=== PATIENT | male | born 1945 | race Caucasian/White ===

== ENCOUNTER → 2021-10-28 10:36 | Outpatient (CLI) | payer MEDICARE, SELFPAY ==
--- NOTE | ~2021-10-28 | US_ITS ---
EXAMINATION: US renal BI DATE: 10/28/2021 10:58 INDICATION: Renal cysts TECHNIQUE: Multiple ultrasound grayscale images of the kidneys were obtained. COMPARISON: None. FINDINGS: The right kidney measures 11.2 x 4.6 x 5.7 cm. 2.2 cm anechoic exophytic cyst arising from the lower pole of the right kidney. The left kidney measures 12.1 x 6.0 x 5.3 cm. The kidneys demonstrate meera l echogenicity. There is no hydronephrosis in either kidney. No stones identified. The bladder is no rmal. IMPRESSION: 1. 2.2 cm exophytic right renal cyst. Otherwise normal kidneys without hydronephrosis. Reviewed, dictated and finalized at location A. IMPRESSION: 1. 2.2 cm exophytic right renal cyst. Otherwise normal kidneys without hydrone phrosis.
== END ==
PROVIDERS: PCP Internal Medicine; Visit Provider Internal Medicine
DX: N28.1 Cyst of kidney, acquired (principal)
CPT/HCPCS: 76775

== ENCOUNTER 2022-03-07 09:32 | Outpatient (CLI) | payer MEDICARE, SELFPAY ==
--- NOTE | ~2022-03-07 | NM_ITS ---
EXAMINATION: NM hepatobiliary wo pharm DATE: 03/07/2022 15:24 INDICATION: Gallstones. COMPARISON: None. TECHNIQUE: 4.9 mCi Tc-99m mebrofenin (Choletec) was administered intravenously. Scintigraphic images of the abdomen were obtained for one hour. Additional 4 hour delayed scintigrams were obtained in an terior and right lateral projections. FINDINGS: There is normal clearance of radiotracer from the blood pool. There is homogeneous tracer u ptake by the liver. Activity progresses to the common bile duct by 15 minutes with activity first se en in the duodenum at 20 minutes. No evident accumulation of activity in the gallbladder on either th e initial 1 hour of imaging or on the 4 hour delayed images. IMPRESSION: 1. No evident gallbladder activity. This can be seen in the setting of acute cholecystitis or false positives can also be seen in the setting of chronic cholecystitis or with either prolonged fasting o r ingestion in the 4 hours prior to imaging. Correlate clinically for signs/symptoms of acute cholecy stitis including Caldera sign and with any prior outside imaging. Reviewed, dictated and finalized at location A. [employer] GENERATOR REPAIRER IMPRESSION: 1. No evident gallbladder activity. This can be seen in the setting of acute c holecystitis or false positives can also be seen in the setting of chronic chol ecystitis or with either prolonged fasting or ingestion in the 4 hours prior to imaging. Correlate clinically for signs/symptoms of acute cholecystitis includ ing Caldera sign and with any prior outside imaging.
== END 2022-03-07 09:33 | disposition home or self-care (01) ==
LOC: ANHIMG 09:39
PROVIDERS: PCP Internal Medicine; Visit Provider Internal Medicine
DX: K80.20 Calculus of gallbladder without cholecystitis without obstruction (principal)
CPT/HCPCS: 78226; A9537

== ENCOUNTER → 2022-03-30 07:20 | Outpatient (CLI) | payer MEDICARE, SELFPAY ==
--- NOTE | ~2022-03-30 | US_ITS ---
EXAMINATION: US abdomen limited DATE: 03/30/2022 11:02 INDICATION: R10.11 - Right upper quadrant pain TECHNIQUE: Multiple grayscale and Doppler ultrasound images of limited portions of the abdomen were o btained. COMPARISON: None available. FINDINGS: Suboptimal visualization of the pancreas. The liver is normal size with increased echogenic ity and normal echotexture. No surface nodularity. Normal hepatopetal flow in the main portal vein. C holelithiasis. 4.6 cm multilobulated echogenicity within the gallbladder lumen, with power Doppler fl ow. The common bile duct measures 4 mm. There was no sonographic Caldera sign. IMPRESSION: 4.6 cm likely gallbladder polyp, recommend referral for surgical consultation. Cholelithiasis. Subopt imal visualization of the pancreas. Reviewed, dictated and finalized at location K. RING PROFESSIONAL IMPRESSION: 4.6 cm likely gallbladder polyp, recommend referral for surgical consultation. Cholelithiasis. Suboptimal visualization of the pancreas.
== END ==
PROVIDERS: PCP Internal Medicine; Visit Provider Surgery
DX: R10.11 Right upper quadrant pain (principal); K80.20 Calculus of gallbladder without cholecystitis without obstruction
CPT/HCPCS: 76705

== ENCOUNTER 2022-04-06 07:56 | Outpatient (CLI) | payer MEDICARE, SELFPAY ==
[2022-04-06 08:44] LABS: Alanine Aminotransferase 23 U/L (6-50); Albumin Level 4.1 g/dL (3.5-5.1); Alkaline Phosphatase 100 U/L (38-126); Amylase 72 U/L (30-110); Aspartate Amino Transferase 24 U/L (17-59); Bilirubin,Total 1.2 mg/dL (0.2-1.3); Lipase 131 U/L (23-300)
== END 2022-04-06 07:57 | disposition home or self-care (01) ==
PROVIDERS: PCP Internal Medicine; Visit Provider Surgery
DX: K80.10 Calculus of gallbladder with chronic cholecystitis without obstruction (principal)
CPT/HCPCS: 36415; 80076; 82150; 83690; 86850; 86900; 86901

== ENCOUNTER 2022-04-13 01:09 | Day surgery (SDC) | payer MEDICARE, SELFPAY ==
--- NOTE | 2022-03-31 14:58 | PC.NURSE ---
Report to the Outpatient Waiting Room, entrance under the green pavilion located off [facility], at time _1030 on date __04/13/22 . Planned Procedure Time: _1230 . Time changes happen often and if your time is changed the preop area will call you the afternoon before. - You and your visitor will be asked to self-screen and do not enter if you have any COVID symptoms. - Only one visitor is requested with a max of two and NO children visitors are allowed at this time. - The patient visitor may be requested to leave or wait in car when not with patient due to distancing restrictions. - A mask is optional within the hospital at this time. Patients may have clear liquids (water, carbonated beverages, clear teas, apple juice) until 3 hours prior to surgery with a maximum of 20 ounces. - No food from midnight until time of surgery - Infants may have breast milk until 4 hours before surgery, infant formula 6 hours prior to surgery. - Children will be allowed to drink immediately following surgery. If applicable, please bring a bottle or sippy cup to assist with drinking. Juice, water, soda, and popsicles are readily available. For infants on formula, please bring formula the day of surgery. Pacifiers are allowed. Take the following medications with a SIP of water the morning of surgery: ___NONE DO NOT STOP ANY OF YOUR OTHER PRESCRIPTION MEDICATIONS PRIOR TO SURGERY ?EXCEPT THE FOLLOWING Medications to discontinue per physician ____ALL VITAMINS AND SUPPLEMENTS 3 DAYS . LAST DOSE 04/09/22 HIBICLENS SHOWER MORNING OF SURGERY Please no make-up, nail turkish, hairspray, perfume, deodorant, or body powder the day of surgery. No jewelry (including any body piercings) or valuables the day of surgery, leave them at home. Please take a shower or bath the night before, or the morning of, surgery with an antibacterial soap. Wear comfortable, loose fitting clothing. Children are encouraged to wear pajamas. - Jewelry must be removed prior to entering the operating room. Rings and piercings that are not removed may be cut off. - The hospital will not accept responsibility for valuables. - Please leave all valuables, including medications, at home the day of surgery. If you are going home after surgery, a licensed garbage truck driver must drive you home. - NO public transportation without another adult if you receive anesthesia. - We recommend that an adult stay with you for 24 hours following discharge. - We also recommend that you do not drive, make important decision, drink alcoholic beverages, or take any drugs that were not prescribed by your health care provider for at least 24 hours after your discharge time. For Pediatric surgeries, we recommend two adults accompany the child home. Follow any additional instructions given to you from your surgeon. If you or anyone in your household have experienced Covid symptoms in the past week, please notify your surgeon or the nurse liaison at the phone number below for possible testing. Telephone instructions given to _PATIENT and asked if any additional questions and then verbalized understanding. Patient advised to call surgeon office or pre surgery nurse liaison [phone] if any additional questions.
[2022-03-31 15:09] VITALS: BMI 27.3
[2022-04-13] VITALS (10 sets, daily range): BP systolic 139–174; BP diastolic 65–92; PULSE 50–80; RESP 12–16; TEMP 36.1–36.4; O2SAT 94–100
--- NOTE | 2022-04-13 07:09 | P.PNAN_ITS ---
Anes - Initial Pre Proc Eval Procedure: Operation Date: 04/13/22 07:30 Proposed Procedures p Laparoscopic Cholecystectomy - Kennedy Dutta MD Date/Time: 04/13/22 07:09 Surgeon: Kennedy Dutta MD Pre Op Diagnosis: chronic cholecystitis with stones Patient Data Age: 76 Gender: M Height: 1.88 m Weight: 96.65 kg Allergies Allergy/AdvReac Type Severity Reaction Status Date / Time No Known Allergies Allergy Verified 03/31/22 14:40 Home Medications Medication Instructions Recorded Confirmed Type cetirizine 10 mg capsule (Zyrtec) 10 mg PO DAILY PRN Allergy Symptoms 03/24/22 03/31/22 History cholecalciferol (vitamin D3) 125 125 mcg PO DAILY 03/24/22 03/31/22 History mcg (5,000 unit) capsule mecobalamin (vitamin B12) 1,000 1,000 mcg PO DAILY 03/24/22 03/31/22 History mcg chewable tablet tadalafil 20 mg tablet 20 mg PO DAILY PRN Erectile 03/24/22 03/31/22 History Dysfunction vitamin E (dl, acetate) 180 mg 180 mg PO DAILY 03/24/22 03/31/22 History (400 unit) capsule Patient hx anesthesia problems: none Family hx anesthesia problems: none Results Review: All pre-operative results and documents have been reviewed as part of the pre-operative evaluation. [facility] Past Medical History Medical History (Updated 03/24/22 @ 14:02 by Emma Liriano) Hypertension Prostate cancer Surgical History Surgical History H/O prostatectomy H/O umbilical hernia repair History of appendectomy Social History Social History Smoking status: Never smoker Living arrangements: with family Spiritual care concerns: No Anes - Eval Final PreProcedure Day of Procedure 04/13/22 07:09 Patient weight: overweight Heart: regular rate and rhythm Lungs: clear to auscultation Airway: Mallampati scale class II Neurological: alert and oriented Last oral intake: >/= 8 hours ASA classification: III Emergent: no Anesthetic plan: proceed Anesthesia type and monitoring: general ETT and standard monitoring Results Review: All pre-operative results and documents have been reviewed as part of the pre- operative evaluation. Informed Consent: The patient's anesthetic plan and its attendant risks and benefits were discussed with the patient/family/POA. Questions were solicited and answers provided to the satisfaction of the patient/family/POA.
--- NOTE | 2022-04-13 07:10 | WPDHPUPDATE1 ---
History and Physical Update Update Date/Time: 04/13/22 07:10 Patient's US showed large polyp per report as well as gallstones. I reviewed the US independently with Dr. Roger. The polyp is more likely a large amount of sludge. There is also a large, 3cm, gallstone. Will be wary of potential GB cancer but there was no indication of this on the CT or the more recent US. Will proceed as planned. History and Physical has been reviewed, including an updated exam of the patient. There are NO changes in the patient's condition. Risks, benefits, and alternatives have been discussed and questions answered. Patient agrees to proceed with procedure.
[2022-04-13] MEDS: LACTATED RINGERS 1,000 ML 30 ML IV CONT ×2 (07:15→08:54)
[2022-04-13] MEDS: KETOROLAC 15 MG/ML VIAL (*BKC) IV PUSH (07:15)
[2022-04-13] MEDS: ACETAMINOPHEN 500 MG TABLET 1000 MG PO (07:15)
[2022-04-13] MEDS: ceFAZolin 2 GM/D5W 50 ML 2 GM/50 ML BAG IVPB (07:27)
[2022-04-13] MEDS: BUPIVACAINE/EPINEPHRINE 0.5% 10 ML VIAL 30 ML INFILTRATE (07:52)
--- NOTE | 2022-04-13 09:11 | W.PM.PROC2 ---
Procedure Note - Detailed Date of Procedure 04/13/22 Pre-op Diagnosis chronic cholecystitis with stones Post-op Diagnosis Other (Acute on chronic cholecystitis with cystic duct obstruction, gallstones) Procedure Performed Laparoscopic cholecystectomy Surgeon Kennedy Dutta MD [employer] May KUMARIA Anesthesia General and Local (0.5% Marcaine with epinephrine) Indications Patient has had several episodes of recurrent right upper quadrant abdominal pain. He has been known to have gallstones for quite some time. Initial imaging was a CT scan which showed a large gallstone. After being seen in the office, he underwent a right upper quadrant ultrasound which was read as having a 4.5 cm gallbladder polyp as well as gallstones. Review of this ultrasound independently with another radiologist suggested this was actually sludge with a large gallstone. There was no evidence of malignancy on either the CT scan or the ultrasound. Patient is taken to surgery now for laparoscopic cholecystectomy. Findings There was hydrops of the gallbladder. Gallbladder wall was thickened. There was mostly chronic inflammation but also some edema and acute inflammation. There was no evidence of cancer but the gallbladder wall was thickened from inflammation. After the gallbladder was removed the inside of the gallbladder was literally 1 large stone. There was no biliary ductal dilatation or liver abnormalities appreciated. Description of Procedure The patient was taken to surgery and induced into general anesthesia. The abdomen is prepped and draped. Trocars were placed in the usual fashion using [employer] optical trocars and a 5 mm camera. After insufflation, the patient was placed in reverse Trendelenburg. The gallbladder was reviewed. There was some inflammatory adhesions to the gallbladder. These were taken down. I inspected the gallbladder for any signs of a tumor and did not find any. We then used a laparoscopic aspirator and decompressed the gallbladder at the fundus. Clear fluid returned consistent with hydrops. A Vicryl endoloop was placed over this cholecystotomy to close it. We then retracted the gallbladder anterosuperiorly. Some additional adhesions were taken down. It was difficult to retract but eventually we were able to do so to an adequate degree. It was difficult to grasp the infundibulum but I was able to do this and placed some traction on the cholecystohepatic triangle. There was a lot of chronic inflammation in the triangle of Calot. Careful dissection was carried out. Eventually the cystic duct was dissected out clearly. The gallbladder was dissected free from the liver dividing the peritoneal attachments on each side. The cystic artery was sought but was never really found. It may have been diminutive and involved in the fairly dense adhesions of the lower gallbladder. It may also of already been thrombosed. None the less, when the gallbladder had been dissected free from the liver over at least a 3rd of its length, the cystic duct was then securely clipped and divided. We then continued the dissection of the gallbladder off the liver. There was really no distinct plane between the gallbladder and the liver but the gallbladder was coming off leaving some raw liver surface behind. The gallbladder was never entered during the dissection. We continued our dissection until eventually the gallbladder was completely freed from the liver. We left the gallbladder in the right upper quadrant and then exposed the gallbladder fossa. Cautery was used and the gallbladder fossa was coagulated to achieve good hemostasis over all the raw liver surface. Bleeding was actually pretty minimal. I was never able to find any semblance of a cystic artery. The clips were secure on the cystic duct stump. We then placed the gallbladder in an Endo-Catch bag and retrieved it through the 10 11 epigastric trocar site. I had to enlarge the trocar site
[2022-04-13] MEDS: fentaNYL CITRATE INJ (*CRX) 100 MCG/2 ML VIAL 25 MCG IV PUSH ×5 (09:35→10:45)
[2022-04-13] MEDS: oxyCODONE HCL (*CRX) 5 MG TAB IR PO (10:34)
== END 2022-04-13 11:20 | disposition home or self-care (01) ==
PROVIDERS: PCP Internal Medicine; Visit Provider Surgery
PROC: 0FT44ZZ Resection of Gallbladder, Percutaneous Endoscopic Approach (ICD-10-PCS; CPT 47562; principal; 2022-04-13 07:30)
DX: K80.10 Calculus of gallbladder with chronic cholecystitis without obstruction (principal); K82.1 Hydrops of gallbladder; I10 Essential (primary) hypertension; Z85.46 Personal history of malignant neoplasm of prostate
CPT/HCPCS: 47562; 88304; A9270; C1713; J0690; J1100; J1170; J1885; J2405; J2704; J2710; J3010; J7120

== ENCOUNTER 2022-09-02 08:02 | Inpatient (IN) | payer MEDICARE, SELFPAY ==
[2022-09-02] VITALS (38 sets, daily range): BP systolic 115–175; BP diastolic 62–86; PULSE 52–88; RESP 10–23; TEMP 36.1–37.2; O2SAT 96–100; BMI 26.2
--- NOTE | ~2022-09-02 | XR_ITS ---
EXAMINATION: XR chest 2V DATE: 09/02/2022 08:55 INDICATION: Chest pain. Dizziness. Weakness. Abdominal pain. TECHNIQUE: Frontal and lateral views of the chest were obtained. COMPARISON: None. FINDINGS: The chest demonstrates clear lungs without pneumonia, pleural effusion, or pneumothorax. Th e heart size is normal. IMPRESSION: 1. No acute cardiopulmonary disease. Reviewed, dictated and finalized at location A.
--- NOTE | 2022-09-02 08:22 | ECG_ITS ---
Measurements Intervals Jakin Rate: 58 P: 37 GA: 197 QRS: -26 QRSD: 98 T: 84 QT: 382 QTc: 377 Interpretive Statements SINUS BRADYCARDIA VENTRICULAR PREMATURE COMPLEX ANTERIOR INFARCT, AGE INDETERMINATE INFERIOR INFARCT, AGE INDETERMINATE BORDERLINE ST-T WAVE ABNORMALITY- ANTEROLAT/HIGH LAT LEADS BASELINE ARTIFACT- I, II, III, AVR, AVL, V1-V2 ABNORMAL ECG NO PREVIOUS ECG AVAILABLE FOR COMPARISON Electronically Signed On 09-02-2022 8:39:57 CDT by Jeffry Meyer D.O.
[2022-09-02 08:34] LABS: Basophils Percent Auto 0.4 % (0.2-1.2); Eosinophils Absolute Auto 0.2 K/mm3 (0-0.3); Eosinophils Percent Auto 1.7 % (0-4.4); Hematocrit 45.8 % (42.0-52.0); Hemoglobin 15.4 g/dL (14.0-18.0); Immature Granulocyte Absolute 0.03 K/mm3 (0.00-0.031); Immature Granulocyte Percent A 0.3 % (0-0.5); Lymphocytes Absolute Auto 2.35 K/mm3 (0.9-3.2); Lymphocytes Percent Auto 22.4 % (18.3-44.2); Mean Corpuscular HGB Conc 33.6 g/dl (32-36); Mean Corpuscular Hemoglobin 30.7 pg (26-34); Mean Corpuscular Volume 91.2 fl (80-100); Mean Platelet Volume 9.9 fl (7.4-10.4); Monocytes Absolute Auto 0.7 K/mm3 (0.1-0.6); Monocytes Percent Auto 6.9 % (2.6-8.5); Neutrophils Absolute Auto 7.2 K/mm3 (1.3-6.7); Neutrophils Percent Auto 68.3 % (45.5-73.1); Platelet Count Result 329 k/mm3 (150-375); Red Blood Count 5.02 M/mm3 (4.6-6.20); Red Cell Distribution Width 13.1 % (11.5-14.5); White Blood Count 10.5 K/mm3 (4.5-10.0)
[2022-09-02 08:44] LABS: Alanine Aminotransferase 42 U/L (6-50); Albumin Level 4.3 g/dL (3.5-5.1); Alkaline Phosphatase 106 U/L (38-126); Anion Gap 3 mmol/L (8-16); Aspartate Amino Transferase 30 U/L (17-59); Bilirubin,Total 1.2 mg/dL (0.2-1.3); Blood Urea Nitrogen 16 mg/dL (9-20); Calcium 9.2 mg/dL (8.4-10.2); Carbon Dioxide 34 mmol/L (22-30); Chloride 103 mmol/L (98-107); Estimated CRCL calculation 67 ml/min; Estimated Glomerular Filt Rate > 60; Glucose 114 mg/dL (65-110); Lipase 145 U/L (23-300); Sodium 140 mmol/L (137-145)
[2022-09-02 08:45] LABS: Prothrombin Time 13.5 Seconds (11.1-14.7)
[2022-09-02 08:58] LABS: Troponin I 0.347 ng/mL (0.000-0.034)
[2022-09-02] MEDS: ASPIRIN 81 MG CHEWABLE TABLET 324 MG PO (08:59)
--- NOTE | 2022-09-02 08:59 | ED.GENADULT ---
HPI - General Adult General Chief complaint: Weakness Stated complaint: Weak x5 days Time Seen by Provider: 09/02/22 08:58 Source: patient Mode of arrival: ambulatory Limitations: no limitations History of Present Illness HPI narrative: Patient is a 76 y/o male who presents to the ED with c/o weakness, dizziness, and CP/SOB. Patient reports he has not been feeling himself for the last 5-7 days. He is typically very active, golfs almost daily, and has been rebuilding a deck on their house, however over the last 1 week, he has not been able to perform these activities. He c/o chest pain and shortness of breath with exertion, noting he has had to stop several times to catch his breath and rest. He states pain and dyspnea will resolve after approximately 5 to 10 minutes of resting. He states at times the pain feels like indigestion or acid reflux. Patient also reports having dizziness with position changes for the last 5 days. He states it feels like he is lightheaded and off-balance. He has history of vertigo, but states the dizziness does not feel similar to this. Denies any headache, vision change, focal weakness, nausea, vomiting, diarrhea, lower extremity pain or swelling. Related Data Home Medications Medication Instructions Recorded Confirmed cetirizine 10 mg capsule (Zyrtec) 10 mg PO DAILY PRN Allergy Symptoms 03/24/22 09/02/22 tadalafil 20 mg tablet 20 mg PO DAILY PRN Erectile 03/24/22 09/02/22 Dysfunction Allergies Allergy/AdvReac Type Severity Reaction Status Date / Time No Known Allergies Allergy Verified 09/02/22 08:22 Review of Systems Review of Systems: CONSTITUTIONAL: Denies fever, chills, or sweats. ENT: Denies rhinorrhea, congestion, sore throat. CARDIOVASCULAR: See HPI. RESPIRATORY: See HPI. GASTROINTESTINAL: Denies abdominal pain, nausea, vomiting. MUSCULOSKELETAL: Denies back pain, joint pain, or myalgia. NEUROLOGIC: See HPI. All systems reviewed & are unremarkable except as noted in HPI and below PMFSH Past Medical History Medical History Hard of hearing Hypertension Prostate cancer Surgical History Surgical History H/O prostatectomy H/O umbilical hernia repair History of appendectomy Hx laparoscopic cholecystectomy 04/13/22 Family History Family History (Updated 09/02/22 @ 14:30 by Sami Pritchett RN) Father Unknown family medical history Mother Arthritis Social History Social History Smoking status: Never smoker Alcohol intake: never Substance use: never Substance use type: does not use Lack of Transportation: No Lack of Food: Never True Current Housing: I Have Housing Concerned About Future Housing: No Difficulty Paying Gas/Electric Bills: No Difficulty Paying for Meds: No Currently Unemployed: No Education: Bachelor's Degree Difficulty w/ Childcare or Family Care: No Living arrangements: with family Spiritual care concerns: No Exam Narrative: GENERAL: Elderly, well-nourished, non-toxic, in no acute distress. HEAD: Normocephalic, atraumatic. EYES: PERRLA/EOMI, conjunctiva clear. ENT: L ear clear, TM normal w/o erythema or bulging. R EAC obscured by cerumen. NECK: Supple. No adenopathy, no masses. RESPIRATORY: Airway patent, respirations nonlabored. Clear to auscultation bilaterally, no rales, rhonchi, wheezing. No focal lung sounds. CARDIOVASCULAR: Regular rate and rhythm without murmurs, rubs, or gallops. Peripheral pulses 2+ and equal bilaterally. ABDOMINAL: Soft, minimal tenderness in the periumbilical region with palpable small reducible hernia bulge, nondistended, no hepatosplenomegaly. Normoactive BS. MUSCULOSKELETAL: Moves all extremities. Strength/ROM intact without gross deformities. No edema. No calf tenderness. SKIN: Warm, dry, normal color. No rashes. ANATOLIY
--- NOTE | 2022-09-02 09:36 | PC.NURSE ---
Pt noted to go into bigeminy while standing for orthostatic vs.
[2022-09-02] MEDS: HEPARIN SODIUM 5,000 UNITS/ML VIAL 4000 UNITS IV PUSH ×2 (09:47→18:08)
[2022-09-02] MEDS: HEPARIN SOD/D5W 100 UNITS/ML 25,000 UNITS/250 ML BAG 10 UNITS IV CONT (09:49)
[2022-09-02] MEDS: SODIUM CHLORIDE 0.9% IV 1,000 ML 999 ML IV CONT (09:52)
[2022-09-02 09:58] LABS: Magnesium 2.1 mg/dL (1.6-2.3)
[2022-09-02 10:00] LABS: NT Pro B Type Natriuretic Pept 1250 pg/mL (19.9-100)
[2022-09-02 10:54] LABS: Appearance Urine Clear (Clear); Bacteria Urine None Seen /hpf; Bilirubin Urine 1+ (Negative); Blood Urine Negative (Negative); Color Urine Dark Yellow (Yellow); Glucose Urine UA Negative (Negative); Ketones Urine Trace mg/dL (Negative); Leukocyte Esterase Ur Negative LEU/UL (Negative); Mucus Urine Present /lpf; Need Manual Microscopic Reviewed; Nitrate Urine Negative (Negative); Protein Urine Trace mg/dL (Negative); RBC Urine 0-2 /hpf (0-2); Specific Grav Ur 1.031 (1.001-1.035); Squamous Epithelial Cell Urine None seen /hpf (Few); WBC Urine 0-5 /hpf; pH Urine 5.5 (5.0-9.0)
[2022-09-02 10:56] LABS: Add Urine Microscopic? YES
--- NOTE | 2022-09-02 11:02 | PM.CNCAR ---
Assessment and Plan Assessment and plan (1) Acute non-ST elevation myocardial infarction (NSTEMI): Code(s): I21.4 - Non-ST elevation (NSTEMI) myocardial infarction Status: Acute Assessment and Plan: Presents with progressive fatigue, dyspnea, and exertional chest pain for 5 days. EKG has no ischemic STTW changes. His symptoms are concerning for myocardial ischemia, and given initial troponin positive at 0.347, will consider this an NSTEMI. He has been placed on a heparin gtt, this should be continued Start ASA, Brilinta Start statin SL nitro p.r.n. for chest pain Check echo Continue telemetry Plan for angiogram poss. PCI on Monday History of Present Illness History of Present Illness Consult date/time: 09/02/22 11:02 Requesting physician: Porsha Staton PA-C Consult reason: chest pain Reason For Visit: NSTEMI/Orthostatic/Hypotension/Dizziness/Frequent Narrative: Mr. Godfrey Is a 76-year-old male with no significant medical history. This is a patient presents to the emergency department because of progressive fatigue, shortness of breath, and exertional chest pain for the last 5 days. The patient states he is normally very active playing golf about 5 times a week but recently he has noticed that he is had to take more frequent breaks because of shortness of breath and chest discomfort. He has also been trying to work on his deck at home but has had to quit that project because of frequent breaks due to fatigue and chest pain. His chest pain he describes as a burning sensation that is located in the mid epigastric area. The pain is not severe but uncomfortable enough to cause him to not want to be active. He denies any nausea, diaphoresis, jaw pain, neck pain, arm pain. He does not have any cardiac history and does not have a strong family history of coronary artery disease. Currently, he is lying comfortably in his stretcher in the emergency department and denies having any chest pain at this time. Review of Systems Review of Systems: All systems reviewed & are unremarkable except as noted in HPI and below PMFSH Past Medical History Medical History Hard of hearing Hypertension Prostate cancer Surgical History Surgical History H/O prostatectomy H/O umbilical hernia repair History of appendectomy Hx laparoscopic cholecystectomy 04/13/22 Social History Social History Smoking status: Never smoker Living arrangements: with family Spiritual care concerns: No Meds Home Medications and Allergies Home Medications Medication Instructions Recorded Confirmed Type cetirizine 10 mg capsule (Zyrtec) 10 mg PO DAILY PRN Allergy Symptoms 03/24/22 05/16/22 History cholecalciferol (vitamin D3) 125 125 mcg PO DAILY 03/24/22 05/16/22 History mcg (5,000 unit) capsule mecobalamin (vitamin B12) 1,000 1,000 mcg PO DAILY 03/24/22 05/16/22 History mcg chewable tablet tadalafil 20 mg tablet 20 mg PO DAILY PRN Erectile 03/24/22 05/16/22 History Dysfunction vitamin E (dl, acetate) 180 mg 180 mg PO DAILY 03/24/22 05/16/22 History (400 unit) capsule Allergies Allergy/AdvReac Type Severity Reaction Status Date / Time No Known Allergies Allergy Verified 09/02/22 08:22 Vital Signs Vital Signs - 24 hr 09/02/22 08:05 09/02/22 08:13 09/02/22 08:39 Temperature 36.1 C L 36.9 C Pulse Rate 79 65 60 Respiratory Rate 20 18 Blood Pressure 117/71 151/86 H Pulse Oximetry 100 99 Oxygen Delivery Room Air Room Air 09/02/22 09:27 09/02/22 09:27 09/02/22 09:29 Temperature Pulse Rate 60 61 78 Respiratory Rate Blood Pressure 124/75 136/73 119/83 Pulse Oximetry Oxygen Delivery 09/02/22 08:21 09/02/22 08:30 09/02/22 08:32 Temperature Pulse Rate 67 72 71 Respiratory Rate 16 21 H 13 Bloo
[2022-09-02 12:14] LABS: Troponin I 0.331 ng/mL (0.000-0.034)
--- NOTE | 2022-09-02 13:07 | PM.IMHP ---
H&P: HPI History of Present Illness Date/Time: 09/02/22 13:07 Chief Complaint: Weakness Narrative: This is a 76-year-old male patient who complained of weakness dizziness and chest pain also shortness breath. The patient is very hard of hearing as well. The patient stated has wax in his ears and cannot hear me. The patient has not been feeling himself for the last 5-7 days. The patient is typically very active. The patient coughs almost daily. He has also been re building a deck on his house. However the patient has not been able to perform these over the last week. The patient short of breath with exertion. He had to stop several times to catch his breath and rest. He states that he has pain and dyspnea that will resolve approximately 5-10 minutes after resting. At times patient states that he feels that he has indigestion or acid reflux. He also has been having dizziness with postural changes for the last 5 days. He feels like he is lightheaded and off balance. He does have a history of vertigo but states the dizziness does not feel the same as pre sick. He denies any nausea vomiting diarrhea or any fever chills. No headaches. EKG was read as sinus bradycardia anterior infarct age indeterminate. Troponin 0.347, 0.331, and 0.219. BNP 1250. Chest x-ray was read as no acute cardiopulmonary disease. Cardiology has been consulted. Heparin drip has been started. The patient was also given an aspirin and was given IV fluids. The patient is being admitted to inpatient status on the date of service of 09/03/2019. Review of Systems Review of Systems: All systems reviewed & are unremarkable except as noted in HPI and below Constitutional: Constitutional: Reports as per HPI and Reports no additional constitutional complaints Eyes: Eyes: Reports as per HPI and Reports no additional eye complaints ENT: Reports system reviewed and no additional complaints, except as documented and Reports Normal hearing present Cardiovascular: Cardiovascular: Reports no additional cardiovascular complaints Respiratory: Respiratory: Reports no additional respiratory complaints and Reports no additional respiratory complaints Gastrointestinal: Gastrointestinal: Reports as per HPI and Reports no additional gastrointestinal complaints Musculoskeletal: Musculoskeletal: Reports no additional musculoskeletal complaints Integumentary/Breasts: Skin/Breast: Reports system reviewed and no additional complaints, except as docu and Reports as per HPI Neurologic: Reports system reviewed and no additional complaints, except as documented, Reports as per HPI and Reports Normal hearing present Psychiatric: Psychiatric: Reports no additional psychiatric complaints and Reports as per HPI Endocrine: Endocrine: Reports no additional endocrine complaints Hematologic/Lymphatic: Hematologic/Lymphatic: Reports no additional hematologic/lymphatic complaints Allergic/Immunologic: Allergic/Immunologic: Reports no additional allergic/immunologic complaints [facility] Past Medical History Medical History (Updated 09/02/22 @ 18:06 by Mona Kumar NP) Erectile dysfunction Hard of hearing Hypertension Prostate cancer Seasonal allergies Surgical History Surgical History H/O prostatectomy H/O umbilical hernia repair History of appendectomy Hx laparoscopic cholecystectomy 04/13/22 Family History Family History (Updated 09/02/22 @ 18:11 by Mona Kumar NP) Father Unknown family medical history Mother Arthritis Son No problems noted. Social History Social History (Updated 09/02/22 @ 18:30 by Mona Kumar NP) Social History: The patient is and lives with his . He had 2 children but his son due to cardiac issues. He is a lifelong nonsmoker. He does not use any alcohol marijuana or illicit drugs. His is the durable power estate planning attorney for healthcare. Code s
--- NOTE | 2022-09-02 13:15 | PC.NURSE ---
patient being transferred upstairs to IMU on heparin drip.
[2022-09-02 13:32] LABS: Glucose Point of Care 66 mg/dl (65-105)
--- NOTE | 2022-09-02 13:35 | ADMGEN ---
This patient, Titi Godfrey, was admitted to IMU Room 211-01. Patient/family oriented to hospital policies and general routines including ID bracelet, bed and alarms, visiting hours, pain management, procedures, bathroom and other care routines, personal items, smoking policy, room service/diet, and visiting hours. Information on how to activate the Rapid Response Team has been discussed. Patient/Family are encouraged to report perceived risks to care and to ask questions if they do not understand what they are told or what they should do.
[2022-09-02 15:24] LABS: Troponin I 0.292 ng/mL (0.000-0.034)
[2022-09-02 17:47] LABS: INR 1.1; Prothrombin Time 14.1 Seconds (11.1-14.7)
[2022-09-02 17:48] LABS: Partial Thromboplastin Time 48.2 SECONDS (22.3-36.8)
[2022-09-02] MEDS: CARBAMIDE PEROXIDE 6.5% OT SOLN 15 ML BTL 5 DROP EACH EAR (18:14)
[2022-09-02] MEDS: TICAGRELOR 90 MG TABLET PO (20:02)
[2022-09-03] VITALS (18 sets, daily range): BP systolic 133–157; BP diastolic 65–92; PULSE 54–87; RESP 18–20; TEMP 36.2–37.2; O2SAT 99–100
[2022-09-03 00:51] LABS: Partial Thromboplastin Time 99.5 SECONDS (22.3-36.8)
--- NOTE | 2022-09-03 06:00 | ECHO_ITS ---
Patient Info Name: Titi Godfrey Age: 76 years : 1945 Gender: Male Ht: 74 in Wt: 203 lbs BSA: 2.20 m2 HR: 63 bpm BP: 133 / 73 mmHg Heart Rhythm: Sinus Rhythm Technical Quality: Good Exam Date: 09/03/2022 10:24 AM Exam Location: [facility] Patient Status: Inpatient Admit Date: 09/02/2022 Staff Ordering Physician: Porsha Staton PA-C Certified Phlebotomist: Jessica Lee RDCS Attending Provider: Shelley Myers MD Referring Physician: Brionna SHANNON; Exam Type: CA echo doppler color flow Study Info Indications - PVC Complete two-dimensional, color flow and Doppler transthoracic echocardiogram is performed. Summary 1. Complete two-dimensional, color flow and Doppler transthoracic echocardiogram is performed. 2. Normal left ventricular size and thickness. Severe hypokinesis of the mid septum with akinesis of the distal septum, anterior wall, apex, and distal inferior wall. Ejection fraction visually is 40% (calculated 47%). 3. Cannot exclude a laminated apical thrombus. 4. Left atrial chamber dimension is moderately enlarged. 5. There is mild aortic valve regurgitation. 6. Borderline dilation of the sinus of Valsalva, 3.8 cm. 7. Normal sinus rhythm with PVCs. Left Ventricle Left ventricular chamber dimension is normal. Left ventricular systolic function is moderately reduced, estimated at 40-45%. There is no increased left ventricular wall thickness. Left ventricular septal wall motion is normal. The left ventricular diastolic function is normal. Right Ventricle Right ventricular chamber dimension is normal. Right ventricular systolic function is normal. Left Atria Left atrial chamber dimension is moderately enlarged. Right Atria Right atrial chamber dimension is normal. Aortic Valve The aortic valve is trileaflet. There is mild aortic valve sclerosis. There is no aortic valve stenosis. There is mild aortic valve regurgitation. Pulmonic Valve The pulmonic valve is normal. There is no pulmonic valve stenosis. There is trace pulmonic regurgitation. Mitral Valve The mitral valve has normal leaflets. There is no mitral valve stenosis. There is trace mitral valve regurgitation. Tricuspid Valve The tricuspid valve leaflets are normal. There is no significant tricuspid valve stenosis. There is trace tricuspid valve regurgitation. No pulmonary hypertension, estimated pulmonary arterial systolic pressure is 13 mmHg. Pericardium/Pleural The pericardium appears normal. There is no pericardial effusion. Inferior Vena Cava Normal inferior vena cava with >50% collapse upon inspiration consistent with Empty right atrial pressure, 10 mmHg. Aorta The aortic root size at the sinus of Valsalva is borderline dilated. The prox ascending aorta size is normal. Left Ventricular Outflow Tract Name Value Normal LVOT 2D LVOT Diameter 2.2 cm LVOT Doppler LVOT Peak Gradient 4 mmHg LVOT Mean Gradient 2 mmHg LVOT VTI 21 cm LVOT Stroke Volume 78 ml LVOT CO 5.0 l/min LVOT CI 2.3 l/min/m
[2022-09-03] MEDS: HEPARIN SOD/D5W 100 UNITS/ML 25,000 UNITS/250 ML BAG 14 UNITS IV CONT (06:09)
[2022-09-03 06:49] LABS: Basophils Percent Auto 0.4 % (0.2-1.2); Eosinophils Absolute Auto 0.3 K/mm3 (0-0.3); Hematocrit 40.6 % (42.0-52.0); Hemoglobin 13.9 g/dL (14.0-18.0); Immature Granulocyte Absolute 0.03 K/mm3 (0.00-0.031); Immature Granulocyte Percent A 0.4 % (0-0.5); Lymphocytes Absolute Auto 2.33 K/mm3 (0.9-3.2); Lymphocytes Percent Auto 28.4 % (18.3-44.2); Mean Corpuscular HGB Conc 34.2 g/dl (32-36); Mean Corpuscular Hemoglobin 30.7 pg (26-34); Mean Corpuscular Volume 89.6 fl (80-100); Mean Platelet Volume 9.8 fl (7.4-10.4); Monocytes Absolute Auto 0.6 K/mm3 (0.1-0.6); Monocytes Percent Auto 7.4 % (2.6-8.5); Neutrophils Percent Auto 60.4 % (45.5-73.1); Platelet Count Result 265 k/mm3 (150-375); Red Blood Count 4.53 M/mm3 (4.6-6.20); Red Cell Distribution Width 12.6 % (11.5-14.5); White Blood Count 8.2 K/mm3 (4.5-10.0)
[2022-09-03 06:59] LABS: Lactic Acid Reflex 1.1 mmol/L (0.7-2.0)
[2022-09-03 07:00] LABS: Alanine Aminotransferase 32 U/L (6-50); Albumin Level 3.6 g/dL (3.5-5.1); Alkaline Phosphatase 104 U/L (38-126); Anion Gap 4 mmol/L (8-16); Aspartate Amino Transferase 25 U/L (17-59); Bilirubin,Total 1.1 mg/dL (0.2-1.3); Blood Urea Nitrogen 15 mg/dL (9-20); Calcium 8.6 mg/dL (8.4-10.2); Carbon Dioxide 31 mmol/L (22-30); Chloride 103 mmol/L (98-107); Estimated CRCL calculation 82 ml/min; Estimated Glomerular Filt Rate > 60; Glucose 107 mg/dL (65-110); Potassium 4.1 mmol/L (3.4-5.0); Sodium 138 mmol/L (137-145)
[2022-09-03 07:17] LABS: Partial Thromboplastin Time 91.5 SECONDS (22.3-36.8)
[2022-09-03] MEDS: ASPIRIN 81 MG ENTERIC TABLET PO (09:29)
[2022-09-03] MEDS: TICAGRELOR 90 MG TABLET PO ×2 (09:29→21:40)
[2022-09-03] MEDS: ATORVASTATIN 40 MG TABLET PO (09:29)
[2022-09-03] MEDS: CARBAMIDE PEROXIDE 6.5% OT SOLN 15 ML BTL 5 DROP EACH EAR ×2 (09:29→17:21)
--- NOTE | 2022-09-03 11:24 | PM.PNCARD ---
Progress Note: A&P Assessment and Plan (1) Acute non-ST elevation myocardial infarction (NSTEMI): Code(s): I21.4 - Non-ST elevation (NSTEMI) myocardial infarction Status: Acute Assessment and Plan: Admitted with non-STEMI, stable since admission. --continue aspirin, Brilinta, atorvastatin, heparin --sometimes bradycardic, have not started beta-carl yet but will see how he does with metoprolol 12.5 mg b.i.d. --echo pending --cardiac catheterization on Monday --counseled patient about CAD, mi, catheterization etc. --okay to be out of bed --check lipids (2) PVCs (premature ventricular contractions): Code(s): I49.3 - Ventricular premature depolarization Status: Acute Assessment and Plan: Occasional to frequent PVCs noted. Potassium and magnesium are normal. --start metoprolol 12.5 mg b.i.d. Subjective Date/time seen: 09/03/22 11:24 Interval history: Follow-up for non-STEMI. Troponins up to 0.35. Start on aspirin, Brilinta, heparin drip. Planning cardiac catheterization with possible PCI on Monday. Date of service 09/03/2022: Doing well, no further CP or indigestion. Would dearly like to get off bedrest. Telemetry: NSR, PVCs Review of Systems Review of Systems: Chest pain, indigestion, shortness of breath. Slight lightheadedness earlier today. No nausea or bleeding. Exam Const: General: cooperative, healthy appearing and comfortable; No confusion Orientation/consciousness: oriented to person, patient oriented x3 and No confusion Other: at bedside. HENMT: Mouth: Yes moist mucous membranes Other: Mildly hard of hearing Eyes: General: appearance normal, both eyes and all related structures Neck: Neck: supple Resp: Effort & Inspection: normal respiratory effort Auscultation: clear to auscultation bilaterally Cardio: Rate: regular rate Rhythm: regular rhythm and abnormal rhythm regularly irregular Heart sounds: no murmurs Other: Sounds like he may be having periods of bigeminy GI: Inspection: normal to inspection GI Palp: No abdominal tenderness Skin: General skin exam: normal color and no rashes or lesions noted Neuro: General: oriented to person, patient oriented x3 and No confusion Extrem: Right lower extremity: no edema Left lower extremity: no edema Psych: Appearance: grossly normal Mental Status: mental status grossly normal Objective Data Vital Signs Vital Signs: Vital Signs - 24 hr 09/02/22 12:14 09/02/22 12:32 09/02/22 13:37 Temperature 98.9 F Pulse Rate 63 59 L 56 L Respiratory Rate 14 16 14 Blood Pressure 139/62 155/72 H Pulse Oximetry 99 100 100 Oxygen Delivery Fraction of Inspired Oxygen 09/02/22 14:00 09/02/22 16:00 09/02/22 16:00 Temperature 98.8 F Pulse Rate 71 55 L Respiratory Rate 16 Blood Pressure 140/74 Pulse Oximetry 99 Oxygen Delivery Room Air Fraction of Inspired Oxygen 09/02/22 16:00 09/02/22 18:00 09/02/22 19:57 Temperature 97 F L Pulse Rate 55 L 80 75 Respiratory Rate 20 Blood Pressure 118/63 Pulse Oximetry 99 Oxygen Delivery Fraction of Inspired Oxygen 09/02/22 20:00 09/02/22 20:00 09/02/22 21:52 Temperature Pulse Rate 75 68 54 L Respiratory Rate 20 Blood Pressure Pulse Oximetry 99 Oxygen Delivery Room Air Fraction of Inspired Oxygen 09/02/22 22:54 09/02/22 23:06 09/02/22 23:27 Temperature 97.7 F Pulse Rate 68 68 68 Respiratory Rate 20 20 Blood Pressure 115/63 Pulse Oximetry 99 100 100 Oxygen Delivery Room Air Room Air Fraction of Inspired Oxygen 09/03/22 00:00 09/03/22 01:34 09/03/22 03:42 Temperature 98.2 F Pulse Rate 73 56 L 68 Respiratory Rate 20 Blood Pressure 133/77 Pulse Oximetry 100 Oxygen Delivery Fraction of Inspired Oxygen 09/03/22 03:44 09/03/22 04:00 09/03/22 05:18 Temperature Pulse Rate 68 57 L 54 L Respiratory Rate 20 Blood
[2022-09-03 12:54] LABS: Cholesterol 145 mg/dL (0-200); HDL Direct 38 mg/dL; Triglycerides 70 mg/dL (<150)
[2022-09-03 13:05] LABS: LDL Cholesterol Direct 79 mg/dL
--- NOTE | 2022-09-03 17:12 | WPDPN ---
Progress Note: A&P Assessment and Plan (1) Acute non-ST elevation myocardial infarction (NSTEMI): Code(s): I21.4 - Non-ST elevation (NSTEMI) myocardial infarction Status: Acute Assessment and Plan: The patient has elevated troponins. Cardiology has been consulted. The patient was started on aspirin and Brilinta. The patient was placed on heparin drip. Sublingual nitro p.r.n. for chest pain. An echo has been ordered. As per Cardiology note, plan for angiogram possibly on Monday. The patient may have a heart healthy diet for now. 09/03/2022 interval history: Patient is 76-year-old male presented with a complaint of chest pain on and off for last few days his symptoms worsen and presented to ER with weakness and is found to have a non STEMI patient is seen by Cardiology started the patient on aspirin, Brilinta, statin, and heparin patient is scheduled for cardiac catheterization on Monday and further re (2) Frequent PVCs: Code(s): I49.3 - Ventricular premature depolarization Status: Acute Assessment and Plan: Check magnesium level. Check electrolytes. (3) History of prostate cancer: Code(s): Z85.46 - Personal history of malignant neoplasm of prostate Status: Acute Assessment and Plan: Patient has a history of prostatectomy Subjective Date/time seen: 09/03/22 17:12 Interval history: Weakness HPI-Narrative: This is a 76-year-old male patient who complained of weakness dizziness and chest pain also shortness breath.? The patient is very hard of hearing as well.? The patient stated has wax in his ears and cannot hear me.? The patient has not been feeling himself for the last 5-7 days.? The patient is typically very active.? The patient coughs almost daily.? He has also been re building a deck on his house.? However the patient has not been able to perform these over the last week.? The patient short of breath with exertion.? He had to stop several times to catch his breath and rest.? He states that he has pain and dyspnea that will resolve approximately 5-10 minutes after resting.? At times patient states that he feels that he has indigestion or acid reflux.? He also has been having dizziness with postural changes for the last 5 days.? He feels like he is lightheaded and off balance.? He does have a history of vertigo but states the dizziness does not feel the same as pre sick.? He denies any nausea vomiting diarrhea or any fever chills.? No headaches.? EKG was read as sinus bradycardia anterior infarct age indeterminate.? Troponin 0.347, 0.331, and 0.219.? BNP 1250.? Chest x-ray was read as no acute cardiopulmonary disease.? Cardiology has been consulted.? Heparin drip has been started.? The patient was also given an aspirin and was given IV fluids.? commendation to follow. 09/03/2022 interval history: Patient is 76-year-old male presented with a complaint of chest pain on and off for last few days his symptoms worsen and presented to ER with weakness and is found to have a non STEMI patient is seen by Cardiology started the patient on aspirin, Brilinta, statin, and heparin patient is scheduled for cardiac catheterization on Monday and further re Review of Systems Review of Systems: Chest pain, indigestion, shortness of breath. Slight lightheadedness earlier today. No nausea or bleeding. All systems reviewed & are unremarkable except as noted in HPI and below Exam Narrative: Patient is comfortable, NAD HEENT: eyes are clear and none icteric LUNGS: Normal respiratory effort ABD: Distended Lower extremities: no edema SKIN: nonjaundiced Neuro: grossly intact. Objective Data Vital Signs Vital Signs: Vital Signs - 24 hr 09/02/22 18:00 09/02/22 19:57 09/02/22 20:00 Temperature 97 F L Pulse Rate 80 75 75 Respiratory Rate 20 20 Blood Pressure 118/63 Pulse Oximetry 99 99 Oxygen Delivery Room Air Fraction of Inspired Oxygen 09/02/22 20:00
[2022-09-03] MEDS: DOCUSATE SODIUM 100 MG CAPSULE PO (21:39)
[2022-09-03] MEDS: METOPROLOL TARTRATE 12.5 MG TABLET PO (21:40)
[2022-09-04] VITALS (16 sets, daily range): BP systolic 114–145; BP diastolic 53–91; PULSE 46–89; RESP 15–20; TEMP 36.3–36.6; O2SAT 98–100
[2022-09-04] MEDS: HEPARIN SOD/D5W 100 UNITS/ML 25,000 UNITS/250 ML BAG IV CONT ×2 (01:14→21:12)
[2022-09-04 05:07] LABS: Hematocrit 42.7 % (42.0-52.0); Hemoglobin 14.5 g/dL (14.0-18.0); Mean Corpuscular Hemoglobin 30.3 pg (26-34); Mean Corpuscular Volume 89.1 fl (80-100); Mean Platelet Volume 10.1 fl (7.4-10.4); Platelet Count Result 275 k/mm3 (150-375); Red Blood Count 4.79 M/mm3 (4.6-6.20); Red Cell Distribution Width 12.8 % (11.5-14.5); White Blood Count 9.3 K/mm3 (4.5-10.0)
[2022-09-04 05:19] LABS: Partial Thromboplastin Time 85.8 SECONDS (22.3-36.8)
[2022-09-04 05:22] LABS: Anion Gap 1 mmol/L (8-16); Blood Urea Nitrogen 15 mg/dL (9-20); Calcium 9.1 mg/dL (8.4-10.2); Carbon Dioxide 35 mmol/L (22-30); Chloride 101 mmol/L (98-107); Estimated CRCL calculation 73 ml/min; Estimated Glomerular Filt Rate > 60; Glucose 113 mg/dL (65-110); Potassium 4.4 mmol/L (3.4-5.0); Sodium 137 mmol/L (137-145)
--- NOTE | 2022-09-04 08:00 | ECG_ITS ---
Measurements Intervals [place] Rate: 71 P: 48 ND: 209 QRS: -33 QRSD: 116 T: 115 QT: 404 QTc: 441 Interpretive Statements SINUS RHYTHM FREQUENT VENTRICULAR PREMATURE COMPLEXES INTRAVENTRICULAR CONDUCTION DELAY ANTERIOR INFARCT, AGE INDETERMINATE INFERIOR INFARCT, AGE INDETERMINATE ST-T WAVE ABNORMALITY IN HIGH LATERAL LEADS- CONSIDER ISCHEMIA ABNORMAL ECG COMPARED TO ECG 09/02/2022 08:14:51 SINUS RHYTHM NOW PRESENT Electronically Signed On 09-04-2022 18:31:33 CDT by Jeffry Meyer D.O.
[2022-09-04] MEDS: METOPROLOL TARTRATE 12.5 MG TABLET PO (09:29)
[2022-09-04] MEDS: ASPIRIN 81 MG ENTERIC TABLET PO (09:29)
[2022-09-04] MEDS: TICAGRELOR 90 MG TABLET PO (09:30)
[2022-09-04] MEDS: ATORVASTATIN 40 MG TABLET PO (09:30)
[2022-09-04] MEDS: DOCUSATE SODIUM 100 MG CAPSULE PO ×2 (09:30→21:10)
[2022-09-04] MEDS: CARBAMIDE PEROXIDE 6.5% OT SOLN 15 ML BTL 5 DROP EACH EAR ×2 (09:30→16:19)
--- NOTE | 2022-09-04 09:59 | WPDPN ---
Progress Note: A&P Assessment and Plan (1) Acute non-ST elevation myocardial infarction (NSTEMI): Code(s): I21.4 - Non-ST elevation (NSTEMI) myocardial infarction Status: Acute Assessment and Plan: The patient has elevated troponins. Cardiology has been consulted. The patient was started on aspirin and Brilinta. The patient was placed on heparin drip. Sublingual nitro p.r.n. for chest pain. An echo has been ordered. As per Cardiology note, plan for angiogram possibly on Monday. The patient may have a heart healthy diet for now. 09/04/2022 interval history: Patient is 76-year-old male presented with a complaint of chest pain on and off for last few days his symptoms worsen and presented to ER with weakness and is found to have a non STEMI patient is seen by Cardiology started the patient on aspirin, Brilinta, statin, and heparin patient is scheduled for cardiac catheterization on Monday and further recpmmendation to follow, also patient has history of inguinal hernia and C/O pain, will consult genreal surgery and further recommendation to follow. (2) Frequent PVCs: Code(s): I49.3 - Ventricular premature depolarization Status: Acute Assessment and Plan: Check magnesium level. Check electrolytes. (3) History of prostate cancer: Code(s): Z85.46 - Personal history of malignant neoplasm of prostate Status: Acute Assessment and Plan: Patient has a history of prostatectomy Subjective Date/time seen: 09/04/22 09:59 Interval history: Weakness HPI-Narrative: This is a 76-year-old male patient who complained of weakness dizziness and chest pain also shortness breath.? The patient is very hard of hearing as well.? The patient stated has wax in his ears and cannot hear me.? The patient has not been feeling himself for the last 5-7 days.? The patient is typically very active.? The patient coughs almost daily.? He has also been re building a deck on his house.? However the patient has not been able to perform these over the last week.? The patient short of breath with exertion.? He had to stop several times to catch his breath and rest.? He states that he has pain and dyspnea that will resolve approximately 5-10 minutes after resting.? At times patient states that he feels that he has indigestion or acid reflux.? He also has been having dizziness with postural changes for the last 5 days.? He feels like he is lightheaded and off balance.? He does have a history of vertigo but states the dizziness does not feel the same as pre sick.? He denies any nausea vomiting diarrhea or any fever chills.? No headaches.? EKG was read as sinus bradycardia anterior infarct age indeterminate.? Troponin 0.347, 0.331, and 0.219.? BNP 1250.? Chest x-ray was read as no acute cardiopulmonary disease.? Cardiology has been consulted.? Heparin drip has been started.? The patient was also given an aspirin and was given IV fluids.? commendation to follow. 09/04/2022 interval history: Patient is 76-year-old male presented with a complaint of chest pain on and off for last few days his symptoms worsen and presented to ER with weakness and is found to have a non STEMI patient is seen by Cardiology started the patient on aspirin, Brilinta, statin, and heparin patient is scheduled for cardiac catheterization on Monday and further recpmmendation to follow, also patient has history of inguinal hernia and C/O pain, will consult genreal surgery and further recommendation to follow. Review of Systems Review of Systems: Chest pain, indigestion, shortness of breath. Slight lightheadedness earlier today. No nausea or bleeding. Exam Narrative: Patient is comfortable, NAD HEENT: eyes are clear and none icteric LUNGS: Normal respiratory effort ABD: Distended Lower extremities: no edema SKIN: nonjaundiced Neuro: grossly intact. Objective Data Vital Signs Vital Signs: Vital Signs - 24 hr 09/03/22 10:00 07
--- NOTE | 2022-09-04 10:46 | PM.CNGS ---
Assessment and Plan Assessment and plan (1) Acute non-ST elevation myocardial infarction (NSTEMI): Code(s): I21.4 - Non-ST elevation (NSTEMI) myocardial infarction Status: Acute Assessment and Plan: cardiology following and plan for cath in am (2) Recurrent ventral hernia: Code(s): K43.2 - Incisional hernia without obstruction or gangrene Status: Acute Assessment and Plan: no obvious recurrence on exam, will likely need imaging for further workup but given cardiac issues will hold off until stabilized as outpt, light activity restrictions for now History of Present Illness Consult details Consult date: 09/04/22 Reason for consult: hernia Requesting physician: Shelley Myers MD Narrative: The patient is a 76-year-old male presenting to the hospital complaining of chest pain, weakness, dizziness. The patient has been worked up and has been diagnosed with a non STEMI CO. He is going to undergo cardiac catheterization in the morning. Incidentally, the patient reports that he had ventral hernia repair x2 around 2017 and recently has become bothersome again in that area. Reports he 1st noticed it after mowing the lawn and working on his deck. The patient denies any bulging in the area, just pain and discomfort. Review of Systems Constitutional: Constitutional: Reports as per HPI, Denies anorexia, Denies chills, Reports fatigue, Reports lethargy, Reports malaise, Denies poor appetite, Denies stops breathing during sleep, Reports weakness, Denies weight gain and Denies weight loss Eyes: Eyes: Reports no additional eye complaints ENT: Reports system reviewed and no additional complaints, except as documented Cardiovascular: Cardiovascular: Reports as per HPI, Reports chest pain, Reports chest pain with activity, Reports diaphoresis, Reports lightheadedness, Reports dyspnea and Reports dyspnea on exertion Respiratory: Respiratory: Reports as per HPI and Reports dyspnea on exertion Gastrointestinal: Gastrointestinal: Reports as per HPI and Reports no additional gastrointestinal complaints Genitourinary: Genitourinary: Reports no additional male genitourinary complaints Musculoskeletal: Musculoskeletal: Reports no additional musculoskeletal complaints Integumentary/Breasts: Skin/Breast: Reports system reviewed and no additional complaints, except as docu Neurologic: Reports system reviewed and no additional complaints, except as documented Psychiatric: Psychiatric: Reports no additional psychiatric complaints Endocrine: Endocrine: Reports no additional endocrine complaints Hematologic/Lymphatic: Hematologic/Lymphatic: Reports no additional hematologic/lymphatic complaints Allergic/Immunologic: Allergic/Immunologic: Reports no additional allergic/immunologic complaints PMFSH Past Medical History Medical History Erectile dysfunction Hard of hearing Hypertension Prostate cancer Seasonal allergies Surgical History Surgical History H/O prostatectomy H/O umbilical hernia repair History of appendectomy Hx laparoscopic cholecystectomy 04/13/22 Family History Family History Father Unknown family medical history Mother Arthritis Son No problems noted. Social History Social History Social History: The patient is and lives with his . He had 2 children but his son due to cardiac issues. He is a lifelong nonsmoker. He does not use any alcohol marijuana or illicit drugs. His is the durable power estate attorney for healthcare. Code status full code Smoking status: Never smoker Alcohol intake: never Substance use: never Substance use type: does not use Lack of Transportation: No Lack of Food: Never True Current Housing: I
--- NOTE | 2022-09-04 15:39 | PM.PNCARD ---
Progress Note: A&P Assessment and Plan (1) Acute non-ST elevation myocardial infarction (NSTEMI): Code(s): I21.4 - Non-ST elevation (NSTEMI) myocardial infarction Status: Acute Assessment and Plan: Admitted with non-STEMI, stable since admission. --continue aspirin, atorvastatin, heparin --tolerated metoprolol 12.5 mg b.i.d.; will increase to 25 mg b.i.d. due to PVCs and LV dysfunction --cardiac catheterization on Monday w/ Dr. Huerta.. Reviewed procedure with the patient. --I suspect the patient has had an old RI based on his EKG changes and his echo, and may have complex CAD. I will hold his Brilinta in case he needs CABG. (2) Ischemic cardiomyopathy: Code(s): I25.5 - Ischemic cardiomyopathy Status: Acute Assessment and Plan: Echo shows an ischemic cardiomyopathy, ejection fraction 40%. I wonder if the patient has had an old (anterior? And inferior? ) RI, or perhaps would just a recent RI and we are catching the tail end of it. --continue metoprolol --add low-dose losartan as blood pressure tolerates (3) PVCs (premature ventricular contractions): Code(s): I49.3 - Ventricular premature depolarization Status: Acute Assessment and Plan: Frequent PVCs noted. Potassium and magnesium are normal. --increase metoprolol. (4) Left ventricular thrombus: Code(s): I51.3 - Intracardiac thrombosis, not elsewhere classified Status: Acute Assessment and Plan: Possible left ventricular apical thrombus by echo, nonmobile. --continue heparin (5) Hypercholesterolemia: Code(s): E78.00 - Pure hypercholesterolemia, unspecified Status: Acute Assessment and Plan: Total cholesterol 145, LDL cholesterol 79, after being on a atorvastatin for a couple of days. --continue atorvastatin (6) Constipation: Code(s): K59.00 - Constipation, unspecified Status: Acute Assessment and Plan: --Laxatives (7) Back pain: Code(s): M54.9 - Dorsalgia, unspecified Status: Acute Assessment and Plan: Suspect musculoskeletal. --Tylenol p.r.n.. Subjective Date/time seen: 09/04/22 15:39 Interval history: Follow-up for non-STEMI. Troponins up to 0.35. Had episodes of exertional indigestion for the 5 days prior to admission, and fatigue and MUIR over the past year. Started on aspirin, Brilinta, heparin drip. Planning cardiac catheterization with possible PCI on Monday. Date of service 09/03/2022: Doing well, no further CP or indigestion. Would dearly like to get off bedrest. Date of service 09/04/2022: No further indigestion or chest pain, no shortness of breath. Up and about in his room with no problems. However he is complaining of right ?kidney? pain located in the right lumbar area, and constipation. Also notes that he has had poor stamina over the past year, but does not recall any severe episodes of indigestion or chest pain over the past year.. 09/04/2022 EKG: Sinus rhythm with frequent PVCs in a pattern of trigeminy, possible old or recent anterior RI, possible old inferior RI, similar to changes seen on admitting EKG. Echo showed severe hypokinesis of the septum with akinesis of the distal septum, anterior wall, apex and distal inferior wall with an ejection fraction of 40%, cannot exclude laminated apical thrombus. Review of Systems Review of Systems: Chest pain, indigestion, shortness of breath. Constipation. Also right lumbar pain, worse with certain movements. No nausea or bleeding. Exam Const: General: cooperative, healthy appearing and comfortable; No confusion Orientation/consciousness: oriented to person, patient oriented x3 and No confusion HENMT: Mouth: Yes moist mucous membranes Other: Mildly hard of hearing Eyes: General: appearance normal, both eyes and all related structures Neck: Neck: supple Resp: Effort & Inspection: normal respiratory effort [place]
[2022-09-04] MEDS: MAGNESIUM HYDROXIDE SUSP 30 ML UDC PO (21:08)
[2022-09-04] MEDS: METOPROLOL TARTRATE 25 MG TABLET PO (21:10)
[2022-09-05] VITALS (27 sets, daily range): BP systolic 102–137; BP diastolic 54–93; PULSE 44–103; RESP 13–20; TEMP 36.1–36.5; O2SAT 94–100
[2022-09-05 04:53] LABS: Partial Thromboplastin Time 81.9 SECONDS (22.3-36.8)
[2022-09-05] MEDS: ASPIRIN 81 MG ENTERIC TABLET PO (09:00)
[2022-09-05] MEDS: DOCUSATE SODIUM 100 MG CAPSULE PO (09:01)
[2022-09-05] MEDS: LOSARTAN POTASSIUM 25 MG TABLET PO (09:01)
[2022-09-05] MEDS: ATORVASTATIN 40 MG TABLET PO (09:01)
[2022-09-05] MEDS: METOPROLOL TARTRATE 25 MG TABLET PO (09:01)
[2022-09-05] MEDS: CARBAMIDE PEROXIDE 6.5% OT SOLN 15 ML BTL 5 DROP EACH EAR ×2 (09:01→16:50)
--- NOTE | 2022-09-05 10:32 | WPDMODSED ---
Moderate Sedation Note-Pt Data Patient Data Diagnosis: coronary artery disease with acute coronary syndrome ECG evidence of previous anterior infarction Present Complaint: no complaints this morning Procedure to be performed/Plan: left heart catheterization Allergies Allergy/AdvReac Type Severity Reaction Status Date / Time No Known Allergies Allergy Verified 09/02/22 08:22 Home Medications Medication Instructions Recorded Confirmed Type cetirizine 10 mg capsule (Zyrtec) 10 mg PO DAILY PRN Allergy Symptoms 03/24/22 09/02/22 History tadalafil 20 mg tablet 20 mg PO DAILY PRN Erectile 03/24/22 09/02/22 History Dysfunction Current Medications: Active Medications Acetaminophen (Acetaminophen 500 Mg Tablet) 1,000 mg PO Q6H PRN PRN Reason: Mild Pain (1-3) or Fever Aspirin (Aspirin 81 Mg Enteric Tablet) 81 mg PO QAM [facility] Last Admin: 09/05/22 09:00 Dose: 81 mg Atorvastatin Calcium (Atorvastatin 40 Mg Tablet) 40 mg PO DAILY [facility] Last Admin: 09/05/22 09:01 Dose: 40 mg Bisacodyl (Bisacodyl 10 Mg Suppository) 10 mg RECTAL DAILY PRN PRN Reason: Constipation Carbamide Peroxide (Carbamide Peroxide 6.5% Ot Soln 15 Ml Btl) 5 drop EACH EAR BID [facility] Last Admin: 09/05/22 09:01 Dose: 5 drop Docusate Sodium (Docusate Sodium 100 Mg Capsule) 100 mg PO Q12HR [facility] Last Admin: 09/05/22 09:01 Dose: 100 mg Heparin Sodium (Porcine) (Heparin Sodium 5,000 Units/Ml Vial) 3,500 units IV PUSH PRN PRN PRN Reason: aPTT 55 - 70 seconds Heparin Sodium (Porcine) (Heparin Sodium 5,000 Units/Ml Vial) 4,000 units IV PUSH PRN PRN PRN Reason: aPTT less than 55 seconds Last Admin: 09/02/22 18:08 Dose: 4,000 units Heparin Sodium/Dextrose (Heparin Sodium/D5w 100 Units/Ml) 25,000 units in 250 mls @ 14 mls/hr IV CONT .[id number] [facility]; Protocol Last Titration: 09/05/22 04:30 Dose: 14 units/hr, 0.14 mls/hr Sodium Chloride (Normal Saline Iv) 500 mls @ 100 mls/hr IV CONT .Q5H [facility] Losartan Potassium (Losartan Potassium 25 Mg Tablet) 25 mg PO DAILY [facility] Last Admin: 09/05/22 09:01 Dose: 25 mg Metoprolol Tartrate (Metoprolol Tartrate 25 Mg Tablet) 25 mg PO Q12HR [facility] Last Admin: 09/05/22 09:01 Dose: 25 mg Nitroglycerin (Nitroglycerin Sl 0.4 Mg Tablet) 0.4 mg SUBLINGUAL Q5MIN PRN PRN Reason: Chest Pain Polyethylene Glycol (Polyethylene Glycol 3350 17 Gm Powd.Pack) 17 gm PO QAM PRN PRN Reason: Constipation Ticagrelor (Ticagrelor 90 Mg Tablet) 90 mg PO Q12HR [facility] Last Admin: 09/04/22 09:30 Dose: 90 mg Sedation/Anesthesia: No previous sedation/anesthesia problems (including family history). [facility] Past Medical History Medical History (Updated 09/04/22 @ 16:20 by Yokasta Estrada MD) Erectile dysfunction Hard of hearing Hypertension Ischemic cardiomyopathy Prostate cancer Seasonal allergies Surgical History Surgical History H/O prostatectomy H/O umbilical hernia repair History of appendectomy Hx laparoscopic cholecystectomy 04/13/22 Family History Family History Father Unknown family medical history Mother Arthritis Son No problems noted. Social History Social History Social History: The patient is and lives with his . He had 2 children but his son due to cardiac issues. He is a lifelong nonsmoker. He does not use any alcohol marijuana or illicit drugs. His is the durable power patent prosecution attorney for healthcare. Code status full code Smoking status: Never smoker Alcohol intake: never Substance use: never Substance use type: does not use Lack of Transportation: No Lack of Food: Never True Current Housing: I Have Housing Concerned About Future Housing: No Difficulty Paying Gas/Electric Bills: No Difficulty Paying for Meds: No Currently Unemployed: No Education: Bachelor's Degr
--- NOTE | 2022-09-05 11:39 | WPDCARDPROC ---
Cardiac Cath Procedure Note Date of procedure:: 09/05/22 Performing physician:: Ben Huerta MD Indication:: acute coronary syndrome ischemic cardiomyopathy Brief clinical history:: this is a 76-year-old man without previous cardiac history. He entered the hospital with episodes of exertional chest pain that began recently. He had some accelerating symptoms that led him to come to the emergency the end of last week. His troponin levels were mildly elevated. His ECG is consistent with previous anterior infarction. echocardiogram demonstrates LV systolic dysfunction. In this setting and angiogram has been recommended. Procedure Procedure performed:: Left ventriculogram coronary angiogram Sedation/Medication given:: fentanyl 50 mg Versed 2 mg case 11 14 a.m. case end time 11:34 a.m. sedation provided by Ester Sears RN, trained observer Access site:: right femoral artery Estimated blood loss:: 20 cc Procedure note:: patient was brought to the cardiac catheterization lab in the postabsorptive state the right femoral triangle was prepared and draped in the usual fashion. Anesthesia was provided with 1% lidocaine locally. Using the modified Seldinger technique the femoral artery was punctured and a 5 [place] vascular sheath was placed. After this I used a 5 [place] angled pigtail catheter performed a left ventriculogram in the GAYLE projection and to measure left-sided hemodynamics and pullback pressures across the aortic valve. Following this 5 [place] JR4 catheter was used to engage and inject the right coronary artery. After this a 5 [place] FL4 catheter was used to engage inject the left artery in multiple projections. Cineangiograms were then reviewed and the case was terminated the patient is taken to the holding area for manual sheath. There were no signs of any procedural complications and there was no evidence of groin hematoma when he left the cardiac catheterization lab. Findings:: Hemodynamics: Central aortic pressure is 118 over 60 left ventricle 118/5 end-diastolic pressure 18 gradient on pullback across the aortic valve. Left ventricle: The LV is moderately dilated there is significant global hypokinesia with akinesia of the anteroapical segment. The global ejection fraction I would visually estimate to be about 30%. The left main coronary artery is large caliber and widely patent left anterior descending is a medium caliber artery. There is a proximal 80% stenosis prior to the 1st diagonal and 1st large septal perforating bro[place]nn taking the origin. Following this the LAD itself is 100% occluded. The remainder of the LAD does fill from [id number] collateral filling from the distal circumflex. Appears to be medium in caliber but obviously under filled. The circumflex is a large caliber artery that is dominant to the posterior circulation. The 1st marginal branch takes off is a ramus intermedius branch and is relatively small with proximal 70-80% stenosis. The 2nd marginal branch is rather small and free of significant disease. The 3rd marginal branch is very large and has a discrete 90-95% stenosis. The left PDA artery is medium in size and has 90% proximal stenosis. The right coronary artery is non dominant giving rise to 2 RV branches. The 1st of these has 80-90% stenosis. Conclusion:: 1. Left coronary dominant circulation with multivessel coronary artery disease 2. 100% occlusion of the LAD after the 1st septal and 1st diagonal with 80% proximal LAD stenosis. Collateral filling of the distal LAD left to left 3. 80% stenosis of small ramus intermedius 4. 90-95% stenosis of large OM3 5. 90% stenosis of a medium-sized LPDA 6. 90% stenosis of non dominant acute marginal/RV branch of the non dominant RCA 7. severe left ventricular systolic dysfunction with significant ischemic cardiomyopathy Ben Huerta MD [facility]
[2022-09-05] MEDS: ATROPINE SULFATE 1 MG/10 ML SYRINGE (12:09)
--- NOTE | 2022-09-05 14:31 | WPDPN ---
Progress Note: A&P Assessment and Plan (1) Acute non-ST elevation myocardial infarction (NSTEMI): Code(s): I21.4 - Non-ST elevation (NSTEMI) myocardial infarction Status: Acute Assessment and Plan: The patient has elevated troponins. Cardiology has been consulted. The patient was started on aspirin and Brilinta. The patient was placed on heparin drip. Sublingual nitro p.r.n. for chest pain. An echo has been ordered. As per Cardiology note, plan for angiogram possibly on Monday. The patient may have a heart healthy diet for now. 09/05/2022 interval history: Patient is 76-year-old male presented with a complaint of chest pain on and off for last few days his symptoms worsen and presented to ER with weakness and is found to have a non STEMI patient is seen by Cardiology started the patient on aspirin, Brilinta, statin, and heparin today patient had cardiac catheterization and it showed severe CAD and power saw mechanic is recommending CABG and patient needs to be transferred to [facility], waiting for the bed, also patient has history of inguinal hernia and C/O pain, was seen by genreal surgery and suggested once patient cardiac issues have resolved will need surgical evaluation. (2) Frequent PVCs: Code(s): I49.3 - Ventricular premature depolarization Status: Acute Assessment and Plan: Check magnesium level. Check electrolytes. (3) History of prostate cancer: Code(s): Z85.46 - Personal history of malignant neoplasm of prostate Status: Acute Assessment and Plan: Patient has a history of prostatectomy Subjective Date/time seen: 09/05/22 14:31 Interval history: The patient has elevated troponins. Cardiology has been consulted. The patient was started on aspirin and Brilinta. The patient was placed on heparin drip. Sublingual nitro p.r.n. for chest pain. An echo has been ordered. As per Cardiology note, plan for angiogram possibly on Monday. The patient may have a heart healthy diet for now. 09/05/2022 interval history: Patient is 76-year-old male presented with a complaint of chest pain on and off for last few days his symptoms worsen and presented to ER with weakness and is found to have a non STEMI patient is seen by Cardiology started the patient on aspirin, Brilinta, statin, and heparin today patient had cardiac catheterization and it showed severe CAD and power saw mechanic is recommending CABG and patient needs to be transferred to [facility], waiting for the bed, also patient has history of inguinal hernia and C/O pain, was seen by genreal surgery and suggested once patient cardiac issues have resolved will need surgical evaluation. Review of Systems Review of Systems: Chest pain, indigestion, shortness of breath. Slight lightheadedness earlier today. No nausea or bleeding. Exam Narrative: Patient is comfortable, NAD HEENT: eyes are clear and none icteric LUNGS: Normal respiratory effort ABD: Distended Lower extremities: no edema SKIN: nonjaundiced Neuro: grossly intact. Objective Data Vital Signs Vital Signs: Vital Signs - 24 hr 09/04/22 16:00 09/04/22 16:00 09/04/22 19:58 Temperature 97.7 F 97.9 F Pulse Rate 63 61 61 Respiratory Rate 17 20 Blood Pressure 114/67 137/90 Pulse Oximetry 100 99 Oxygen Delivery 09/04/22 21:10 09/04/22 23:11 09/04/22 20:00 Temperature 97.5 F L Pulse Rate 89 67 61 Respiratory Rate 20 20 Blood Pressure 128/74 Pulse Oximetry 100 99 Oxygen Delivery Room Air 09/04/22 23:52 09/04/22 20:00 09/04/22 22:00 Temperature Pulse Rate 67 58 L 61 Respiratory Rate 20 Blood Pressure Pulse Oximetry 100 Oxygen Delivery Room Air 09/05/22 00:00 09/05/22 01:48 09/05/22 03:20 Temperature 97.7 F Pulse Rate 75 71 53 L Respiratory Rate 20 Blood Pressure 134/74 Pulse Oximetry 99 Oxygen Delivery 09/05/22 03:21 09/05/22 04:00 09/05/22 05:23
[2022-09-05] MEDS: SODIUM CHLORIDE 0.9% IV 1,000 ML 125 ML IV CONT (16:50)
[2022-09-05 17:17] LABS: Activated Clotting Time 155 SEC (74-137)
--- NOTE | 2022-09-05 20:41 | PC.NURSE ---
Dayshift nurse discussed with Dr. Dietz the need to restart the heparin gtt at midnight for potential transfer/CABG. Pt states he would rather go home than have his blood drawn. Staff attempted to explain the necessity of transfer and heparin for pt. Pt does not want to discuss options with staff. States he is going to call his to go home. Notified charge, IKE Arthur.
--- NOTE | 2022-09-05 22:00 | PC.NURSE ---
predatory hunter had lengthy discussion with pt and his spouse. Pt is agreeable to heparin gtt. Heparin gtt reordered as per Dr. Dietz's instructions.
[2022-09-06] VITALS (14 sets, daily range): BP systolic 120–132; BP diastolic 58–87; PULSE 52–85; RESP 16–20; TEMP 36.1–36.4; O2SAT 98–100
--- NOTE | 2022-09-06 | ECHO_ITS ---
Patient Info Name: Titi Godfrey Age: 76 years : 1945 Gender: Male Ht: 74 in Wt: 203 lbs BSA: 2.20 m2 HR: 76 bpm BP: 131 / 87 mmHg Heart Rhythm: Sinus Rhythm Technical Quality: Good Exam Date: 09/06/2022 1:47 PM Exam Location: [facility] Patient Status: Inpatient Admit Date: 09/02/2022 Staff Ordering Physician: Yokasta Estrada MD [employer] Markup Clerk: Jessica Lee RDCS Attending Provider: Shelley Myers MD Referring Physician: Sean MARTELL; Exam Type: CA echo limited w contrast Study Info Indications - EVal for LV thrombuse Complete two-dimensional, color flow and Doppler transthoracic echocardiogram is performed with contrast to opacify the left ventricle and to improve the deliniation of the left ventricle endocardial borders. Summary 1. Limited echo study using definity echo contrast to do opacify the left ventricle better. 2. Normal left ventricular size with mild concentric hypertrophy. Severe left ventricular dysfunction, with severe hypokinesis of the mid septum and anterior wall, akinesis of the distal anteroseptal wall and distal inferior wall, and dyskinesis of a small area of the apex. Ejection fraction visually is 30-35%. Somewhat technically difficult study, definity echo contrast used. 3. IV Definity Echo contrast opacification of the left ventricular apex suggests a 1.1 x 0.7 cm nonmobile apical mass, probable thrombus. 4. Moderate left atrial enlargement. 5. Normal sinus rhythm. Left Ventricular Outflow Tract Name Value Normal LVOT 2D LVOT Diameter 2.2 cm Aortic Valve Name Value Normal AV Regurgitation 2D LVOT Area 3.6 cm2 Ventricles Name Value Normal LV Dimensions 2D/MM IVS Diastolic Thickness (2D) 1.3 cm 0.6-1.0 LVID Diastole (2D) 4.1 cm 4.2-5.8 LVIW Diastolic Thickness (2D) 1.3 cm 0.6-1.0 LVID Systole (2D) 2.8 cm 2.5-4.0 LVOT Diameter 2.2 cm LV Mass (2D Cubed) 195.92 g 88.00-224.00 LV Mass Index (2D Cubed) 89 g/m2 49-115 Relative Wall Thickness (2D) 0.64 LV Fractional Shortening/Ejection Fraction 2D/MM LV Fractional Shortening (2D) 32 % 25-43 LV EF (2D Teicholz) 61 % 52-72 LV Diastolic Volume (4C MOD) 131 ml LV EF (4C MOD) 56 % LV Diastolic Volume (2C MOD) 145 ml LV EF (2C MOD) 63 % LV Diastolic Volume (BP MOD) 138 ml 62-150 LV Diastolic Volume Index (BP MOD) 63 ml/m2 34-74 LV Systolic Volume (BP MOD) 5
[2022-09-06] MEDS: HEPARIN SOD/D5W 100 UNITS/ML 25,000 UNITS/250 ML BAG 14 UNITS IV CONT ×2 (00:02→15:59)
[2022-09-06 06:43] LABS: Partial Thromboplastin Time 64.6 SECONDS (22.3-36.8)
[2022-09-06] MEDS: HEPARIN SODIUM 5,000 UNITS/ML VIAL 3500 UNITS IV PUSH (07:02)
[2022-09-06] MEDS: DOCUSATE SODIUM 100 MG CAPSULE PO ×2 (08:28→20:51)
[2022-09-06] MEDS: ATORVASTATIN 40 MG TABLET PO (08:28)
[2022-09-06] MEDS: LOSARTAN POTASSIUM 25 MG TABLET PO (08:28)
[2022-09-06] MEDS: ASPIRIN 81 MG ENTERIC TABLET PO (08:28)
[2022-09-06] MEDS: CARBAMIDE PEROXIDE 6.5% OT SOLN 15 ML BTL 5 DROP EACH EAR (08:29)
[2022-09-06] MEDS: METOPROLOL SUCCINATE EXT REL 25 MG TABCR PO (08:46)
--- NOTE | 2022-09-06 10:26 | PM.PNCARD ---
Progress Note: A&P Assessment and Plan (1) Acute non-ST elevation myocardial infarction (NSTEMI): Code(s): I21.4 - Non-ST elevation (NSTEMI) myocardial infarction Status: Acute Assessment and Plan: Admitted with non-STEMI, stable since admission. Has multivessel CAD and decreased LV function. Hemodynamically stable, no further chest discomfort. Would benefit from CABG. --continue aspirin, atorvastatin, heparin --tolerating metoprolol 25 mg b.i.d. due to PVCs and LV dysfunction --desires inpatient transfer for CABG, [facility] transfer line contacted. --last dose of Brilinta was 09/04/2022 at 9:30 a.m. --multiple questions were answered and multiple concerns addressed (2) Ischemic cardiomyopathy: Code(s): I25.5 - Ischemic cardiomyopathy Status: Acute Assessment and Plan: Echo shows an ischemic cardiomyopathy, ejection fraction 40%. EF by cath 30%. Likely old anterior CO w/ recent ACS w/ culprit being perhaps OM? --continue metoprolol --added low-dose losartan (3) PVCs (premature ventricular contractions): Code(s): I49.3 - Ventricular premature depolarization Status: Acute Assessment and Plan: Frequent PVCs noted. Potassium and magnesium are normal. --Cont metoprolol. (4) Left ventricular thrombus: Code(s): I51.3 - Intracardiac thrombosis, not elsewhere classified Status: Acute Assessment and Plan: Cannot exclude left ventricular apical thrombus by echo, nonmobile. --continue heparin --check echo with definity for further evaluation. (5) Hypercholesterolemia: Code(s): E78.00 - Pure hypercholesterolemia, unspecified Status: Acute Assessment and Plan: Total cholesterol 145, LDL cholesterol 79, after being on a atorvastatin for a couple of days. --continue atorvastatin (6) Constipation: Code(s): K59.00 - Constipation, unspecified Status: Acute Assessment and Plan: --Laxatives (7) Back pain: Code(s): M54.9 - Dorsalgia, unspecified Status: Acute Assessment and Plan: Suspect musculoskeletal, improved. --Tylenol p.r.n.. Subjective Date/time seen: 09/06/22 10:26 Interval history: Follow-up for non-STEMI. Troponins up to 0.35. Had episodes of exertional indigestion for the 5 days prior to admission, and fatigue and MUIR over the past year. Started on aspirin, Brilinta, heparin drip. Echo EF 30-35%. Cardiac catheterization 09/05/2022 showed multivessel CAD. Date of service 09/03/2022: Doing well, no further CP or indigestion. Would dearly like to get off bedrest. Date of service 09/04/2022: No further indigestion or chest pain, no shortness of breath. Up and about in his room with no problems. However he is complaining of right ?kidney? pain located in the right lumbar area, and constipation. Also notes that he has had poor stamina over the past year, but does not recall any severe episodes of indigestion or chest pain over the past year.. Echo showed severe hypokinesis of the septum with akinesis of the distal septum, anterior wall, apex and distal inferior wall with an ejection fraction of 40%, cannot exclude laminated apical thrombus. 09/05/[address] Huerta: 80% proximal Left anterior descending, occluded mid Left anterior descending which fills via collaterals, 80% small ramus, 90-95% large OM3, 90% PDA, 90% non dominant RCA, severe LV dysfunction, EF 30%. Date of service 09/06/2022: Patient unhappy, getting blood drawn too often due to heparin drip and has a sore arm, blood pressure cuff uncomfortable, once more communication. No chest pain or shortness of breath. Would like to be transferred to [facility] or [facility] for CABG. Last dose of Brilinta was 09/04/2022 at 9:30 a.m. Review of Systems Review of Systems: Chest pain, indigestion, shortness of breath. Constipation. Also right lumbar pain, worse with cert
[2022-09-06] MEDS: PERFLUTREN LIPID MICROSPHERES 1.5 ML VIAL DILUTED TO 10 ML TOTAL VOLUME IV PUSH (13:40)
[2022-09-06 13:53] LABS: Partial Thromboplastin Time 116.2 SECONDS (22.3-36.8)
--- NOTE | 2022-09-06 16:15 | P.TS_ITS ---
Transfer Discharge Sum: Prov Provider Date of admission: 09/02/22 17:10 Primary care physician: Kwan Dong, Admitting clinician: Shelley Myers MD Consults: 09/02/22 09:54 Consult to Physician Routine Comment: Consulting Provider: Ish Dietz Reason for consultation: NSTEMI, bigeminy/frequent PVCs, exertional CP/SOB Has provider been notified: Yes 09/03/22 11:53 Consult to Physician Routine Comment: Consulting Provider: Malorie Nesbitt order caller/MD group to consult: general Reason for consultation: hx of inguinal hernia, s/p surgery, now painful Has provider been notified: Yes Transfer Discharge Sum: Med Medications Active and Home Medications: Home Medications cetirizine 10 mg capsule (Zyrtec) 10 mg PO DAILY PRN Allergy Symptoms 03/24/22 [History Confirmed 09/02/22] tadalafil 20 mg tablet 20 mg PO DAILY PRN Erectile Dysfunction 03/24/22 [History Confirmed 09/02/22] Active Medications Acetaminophen (Acetaminophen 500 Mg Tablet) 1,000 mg PO Q6H PRN PRN Reason: Mild Pain (1-3) or Fever Aspirin (Aspirin 81 Mg Enteric Tablet) 81 mg PO QAM [facility] Last Admin: 09/06/22 08:28 Dose: 81 mg Atorvastatin Calcium (Atorvastatin 40 Mg Tablet) 40 mg PO DAILY [facility] Last Admin: 09/06/22 08:28 Dose: 40 mg Bisacodyl (Bisacodyl 10 Mg Suppository) 10 mg RECTAL DAILY PRN PRN Reason: Constipation Carbamide Peroxide (Carbamide Peroxide 6.5% Ot Soln 15 Ml Btl) 5 drop EACH EAR BID [facility] Last Admin: 09/06/22 16:01 Dose: Not Given Docusate Sodium (Docusate Sodium 100 Mg Capsule) 100 mg PO Q12HR [facility] Last Admin: 09/06/22 08:28 Dose: 100 mg Heparin Sodium (Porcine) (Heparin Sodium 5,000 Units/Ml Vial) 3,500 units IV PUSH PRN PRN PRN Reason: aPTT 55 - 70 seconds Last Admin: 09/06/22 07:02 Dose: 3,500 units Heparin Sodium (Porcine) (Heparin Sodium 5,000 Units/Ml Vial) 4,000 units IV PUSH PRN PRN PRN Reason: aPTT less than 55 seconds Last Admin: 09/02/22 18:08 Dose: 4,000 units Heparin Sodium/Dextrose (Heparin Sodium/D5w 100 Units/Ml) 25,000 units in 250 mls @ 14 mls/hr IV CONT .[id number] [facility]; Protocol Last Admin: 09/06/22 15:59 Dose: 1,400 units/hr, 14 mls/hr Losartan Potassium (Losartan Potassium 25 Mg Tablet) 25 mg PO DAILY [facility] Last Admin: 09/06/22 08:28 Dose: 25 mg Metoprolol Succinate (Metoprolol Succinate Ext Rel 25 Mg Tabcr) 25 mg PO QAM [facility] Last Admin: 09/06/22 08:46 Dose: 25 mg Nitroglycerin (Nitroglycerin Sl 0.4 Mg Tablet) 0.4 mg SUBLINGUAL Q5MIN PRN PRN Reason: Chest Pain Perflutren Lipid Microsphere (Perflutren Lipid Microspheres 1.5 Ml Vial Diluted To 10 Ml Total Volume) 0 ml IV PUSH ONCE PRN; Protocol PRN Reason: adequate visualization Stop: 09/08/22 10:01 Polyethylene Glycol (Polyethylene Glycol 3350 17 Gm Powd.Pack) 17 gm PO QAM PRN PRN Reason: Constipation Ticagrelor (Ticagrelor 90 Mg Tablet) 90 mg PO Q12HR [facility] Last Admin: 09/04/22 09:30 Dose: 90 mg Transfer Discharge Sum: Hosp Hospital Course Hospital course: Titi Godfrey is a 76 year old male Time Spent with Patient Time attestation: Total time spent providing and/or coordinating transfer services: DS: Data Data Completed and Pending Labs on day of discharge: Labs from last 24 hours 09/06/22 09/06/22 09/05/22
[2022-09-06 19:47] LABS: Partial Thromboplastin Time 86.1 SECONDS (22.3-36.8)
[2022-09-07] VITALS (15 sets, daily range): BP systolic 101–134; BP diastolic 54–86; PULSE 53–75; RESP 12–20; TEMP 36.3–36.4; O2SAT 97–100
[2022-09-07 02:25] LABS: Partial Thromboplastin Time 93.3 SECONDS (22.3-36.8)
[2022-09-07] MEDS: DOCUSATE SODIUM 100 MG CAPSULE PO (08:48)
[2022-09-07] MEDS: METOPROLOL SUCCINATE EXT REL 25 MG TABCR PO (08:48)
[2022-09-07] MEDS: ATORVASTATIN 40 MG TABLET PO (08:48)
[2022-09-07] MEDS: LOSARTAN POTASSIUM 25 MG TABLET PO (08:48)
[2022-09-07] MEDS: CARBAMIDE PEROXIDE 6.5% OT SOLN 15 ML BTL 5 DROP EACH EAR ×2 (08:49→16:56)
[2022-09-07] MEDS: ASPIRIN 81 MG ENTERIC TABLET PO (08:49)
[2022-09-07] MEDS: HEPARIN SOD/D5W 100 UNITS/ML 25,000 UNITS/250 ML BAG 14 UNITS IV CONT (09:53)
--- NOTE | 2022-09-07 13:33 | ECG_ITS ---
Measurements Intervals [place] Rate: 58 P: 19 MT: 165 QRS: 18 QRSD: 82 T: 24 QT: 425 QTc: 420 Interpretive Statements SINUS BRADYCARDIA POSSIBLE LEFT ATRIAL ENLARGEMENT INCOMPLETE RIGHT BUNDLE BRANCH BLOCK BASELINE ARTIFACT- I, II, III, AVR, AVL, AVF BORDERLINE ECG COMPARED TO ECG 09/04/2022 09:27:48 SINUS BRADYCARDIA NOW PRESENT Electronically Signed On 09-08-2022 8:07:04 CDT by Jeffry Meyer D.O.
--- NOTE | 2022-09-07 13:52 | PM.PNCARD ---
Progress Note: A&P Assessment and Plan (1) Acute non-ST elevation myocardial infarction (NSTEMI): Code(s): I21.4 - Non-ST elevation (NSTEMI) myocardial infarction Status: Acute Assessment and Plan: Admitted with non-STEMI, stable since admission. Has multivessel CAD and decreased LV function. Hemodynamically stable, no further chest discomfort. Would benefit from CABG, or, if apex is nonviable, consider multivessel PCI. --continue aspirin, atorvastatin, heparin --tolerating metoprolol for recent UT, PVCs and LV dysfunction --desires inpatient transfer for CABG, [facility] transfer line contacted, discussed with cardiothoracic surgeon, Dr. Jackson. --last dose of Brilinta was 09/04/2022 at 9:30 a.m. --multiple questions were answered and multiple concerns addressed (2) Ischemic cardiomyopathy: Code(s): I25.5 - Ischemic cardiomyopathy Status: Acute Assessment and Plan: Echo shows an ischemic cardiomyopathy, ejection fraction 40%. EF by cath 30%. Likely old anterior UT w/ recent ACS w/ culprit being perhaps OM? --continue metoprolol XL, increase dose to 3.75 mg qd --added low-dose losartan --Add spironolactone 12.5 mg qd (3) PVCs (premature ventricular contractions): Code(s): I49.3 - Ventricular premature depolarization Status: Acute Assessment and Plan: Frequent PVCs noted. Potassium and magnesium are normal. --Cont metoprolol. (4) Left ventricular thrombus: Code(s): I51.3 - Intracardiac thrombosis, not elsewhere classified Status: Acute Assessment and Plan: Likely left ventricular apical thrombus by echo, nonmobile. --continue heparin or now, though likely low risk of embolization. (5) Hypercholesterolemia: Code(s): E78.00 - Pure hypercholesterolemia, unspecified Status: Acute Assessment and Plan: Total cholesterol 145, LDL cholesterol 79, after being on a atorvastatin for a couple of days. --continue atorvastatin (6) Encounter for end of life education, guidance and counseling: Status: Acute Assessment and Plan: Patient values his independence and ability to take care of himself. Okay for short-term life support/ventilator but he does not want any long-term life support. Does not want to linger, or be dependent. He would permit CPR, but only for brief time; if he does not revive quickly (10-15 minutes) he does not want CPR to continue. Subjective Date/time seen: 09/07/22 13:52 Interval history: Follow-up for non-STEMI. Troponins up to 0.35. Had episodes of exertional indigestion for the 5 days prior to admission, and fatigue and MUIR over the past year. Started on aspirin, Brilinta, heparin drip. Echo EF 30-35%. Cardiac catheterization 09/05/2022 showed multivessel CAD. 09/03/2022: Doing well, no further CP or indigestion. Would dearly like to get off bedrest. 09/04/2022: No further indigestion or chest pain, no shortness of breath. Up and about in his room with no problems. However he is complaining of right ?kidney? pain located in the right lumbar area, and constipation. Also notes that he has had poor stamina over the past year, but does not recall any severe episodes of indigestion or chest pain over the past year.. Echo showed severe hypokinesis of the septum with akinesis of the distal septum, anterior wall, apex and distal inferior wall with an ejection fraction of 40%, cannot exclude laminated apical thrombus. Cardiac catheterization by Dr. Huerta: 80% proximal Left anterior descending, occluded mid Left anterior descending which fills via collaterals, 80% small ramus, 90-95% large OM3, 90% PDA, 90% non dominant RCA, severe LV dysfunction, EF 30%. 09/06/2022: Patient unhappy, getting blood drawn too often due to heparin drip and has a sore arm, blood pressure cuff uncomfortable, wants more communication. No chest pain or shortness of breath. Would like to be transferred to [facility]
--- NOTE | 2022-09-07 17:21 | WPDPN ---
Progress Note: A&P Assessment and Plan (1) Acute non-ST elevation myocardial infarction (NSTEMI): Code(s): I21.4 - Non-ST elevation (NSTEMI) myocardial infarction Status: Acute Assessment and Plan: The patient has elevated troponins. Cardiology has been consulted. The patient was started on aspirin and Brilinta. The patient was placed on heparin drip. Sublingual nitro p.r.n. for chest pain. An echo has been ordered. As per Cardiology note, plan for angiogram possibly on Monday. The patient may have a heart healthy diet for now. 09/06/2022 interval history: Patient is 76-year-old male presented with a complaint of chest pain on and off for last few days his symptoms worsen and presented to ER with weakness and is found to have a non STEMI patient is seen by Cardiology started the patient on aspirin, Brilinta, statin, and heparin today patient had cardiac catheterization and it showed severe CAD and tree pruner is recommending CABG and patient needs to be transferred to [facility], waiting for the bed, hopefull transfer today, also patient has history of inguinal hernia and C/O pain, was seen by general surgery and suggested once patient cardiac issues have resolved will need surgical evaluation. (2) Frequent PVCs: Code(s): I49.3 - Ventricular premature depolarization Status: Acute Assessment and Plan: Check magnesium level. Check electrolytes. (3) History of prostate cancer: Code(s): Z85.46 - Personal history of malignant neoplasm of prostate Status: Acute Assessment and Plan: Patient has a history of prostatectomy Subjective Date/time seen: 09/07/22 17:21 Interval history: The patient has elevated troponins. Cardiology has been consulted. The patient was started on aspirin and Brilinta. The patient was placed on heparin drip. Sublingual nitro p.r.n. for chest pain. An echo has been ordered. As per Cardiology note, plan for angiogram possibly on Monday. The patient may have a heart healthy diet for now. 09/06/2022 interval history: Patient is 76-year-old male presented with a complaint of chest pain on and off for last few days his symptoms worsen and presented to ER with weakness and is found to have a non STEMI patient is seen by Cardiology started the patient on aspirin, Brilinta, statin, and heparin today patient had cardiac catheterization and it showed severe CAD and tree pruner is recommending CABG and patient needs to be transferred to [facility], waiting for the bed, hopefull transfer today, also patient has history of inguinal hernia and C/O pain, was seen by general surgery and suggested once patient cardiac issues have resolved will need surgical evaluation. Review of Systems Review of Systems: Chest pain, indigestion, shortness of breath. Slight lightheadedness earlier today. No nausea or bleeding. Exam Narrative: Patient is comfortable, NAD HEENT: eyes are clear and none icteric LUNGS: Normal respiratory effort ABD: Distended Lower extremities: no edema SKIN: nonjaundiced Neuro: grossly intact. Objective Data Vital Signs Vital Signs: Vital Signs - 24 hr 09/06/22 18:00 09/06/22 20:00 09/06/22 20:00 Temperature 97.0 F L Pulse Rate 75 60 68 Respiratory Rate 20 Blood Pressure 120/62 Pulse Oximetry 98 Oxygen Delivery 09/06/22 20:00 09/06/22 22:00 09/07/22 00:00 Temperature Pulse Rate 85 64 Respiratory Rate Blood Pressure Pulse Oximetry Oxygen Delivery Room Air 09/07/22 00:00 09/07/22 00:00 09/07/22 03:22 Temperature 97.5 F L 97.6 F Pulse Rate 56 L 60 Respiratory Rate 20 20 Blood Pressure 128/86 134/69 Pulse Oximetry 100 100 Oxygen Delivery Room Air 09/07/22 02:00 09/07/22 04:00 09/07/22 04:00 Temperature Pulse Rate 73 70 Respiratory Rate Blood Pressure Pulse Oximetry Oxygen Delivery Room Air 09/07/22 05:51 08/27
--- NOTE | 2022-09-07 17:41 | PM.TDS ---
Transfer Discharge Sum: Prov Provider Date of admission: 09/02/22 17:10 Primary care physician: Kwan Dong, Admitting clinician: Shelley Myers MD Consults: 09/02/22 09:54 Consult to Physician Routine Comment: Consulting Provider: Ish Dietz Reason for consultation: NSTEMI, bigeminy/frequent PVCs, exertional CP/SOB Has provider been notified: Yes 09/03/22 11:53 Consult to Physician Routine Comment: Consulting Provider: Malorie Nesbitt call center specialist/MD group to consult: general Reason for consultation: hx of inguinal hernia, s/p surgery, now painful Has provider been notified: Yes DS: Admitting Diagnosis Discharge Date 09/07/2022 Admitting Diagnosis Weakness Transfer Discharge Sum: Med Medications Active and Home Medications: Home Medications cetirizine 10 mg capsule (Zyrtec) 10 mg PO DAILY PRN Allergy Symptoms 03/24/22 [History Confirmed 09/02/22] tadalafil 20 mg tablet 20 mg PO DAILY PRN Erectile Dysfunction 03/24/22 [History Confirmed 09/02/22] Active Medications Acetaminophen (Acetaminophen 500 Mg Tablet) 1,000 mg PO Q6H PRN PRN Reason: Mild Pain (1-3) or Fever Aspirin (Aspirin 81 Mg Enteric Tablet) 81 mg PO QAM [facility] Last Admin: 09/07/22 08:49 Dose: 81 mg Atorvastatin Calcium (Atorvastatin 40 Mg Tablet) 40 mg PO DAILY [facility] Last Admin: 09/07/22 08:48 Dose: 40 mg Bisacodyl (Bisacodyl 10 Mg Suppository) 10 mg RECTAL DAILY PRN PRN Reason: Constipation Carbamide Peroxide (Carbamide Peroxide 6.5% Ot Soln 15 Ml Btl) 5 drop EACH EAR BID [facility] Last Admin: 09/07/22 16:56 Dose: 5 drop Docusate Sodium (Docusate Sodium 100 Mg Capsule) 100 mg PO Q12HR [facility] Last Admin: 09/07/22 08:48 Dose: 100 mg Heparin Sodium (Porcine) (Heparin Sodium 5,000 Units/Ml Vial) 3,500 units IV PUSH PRN PRN PRN Reason: aPTT 55 - 70 seconds Last Admin: 09/06/22 07:02 Dose: 3,500 units Heparin Sodium (Porcine) (Heparin Sodium 5,000 Units/Ml Vial) 4,000 units IV PUSH PRN PRN PRN Reason: aPTT less than 55 seconds Last Admin: 09/02/22 18:08 Dose: 4,000 units Heparin Sodium/Dextrose (Heparin Sodium/D5w 100 Units/Ml) 25,000 units in 250 mls @ 14 mls/hr IV CONT .[id number] [facility]; Protocol Last Admin: 09/07/22 09:53 Dose: 1,400 units/hr, 14 mls/hr Losartan Potassium (Losartan Potassium 25 Mg Tablet) 25 mg PO DAILY [facility] Last Admin: 09/07/22 08:48 Dose: 25 mg Metoprolol Succinate (Metoprolol Succinate Ext Rel 12.5 Mg Tabcr) 37.5 mg PO QAM [facility] Nitroglycerin (Nitroglycerin Sl 0.4 Mg Tablet) 0.4 mg SUBLINGUAL Q5MIN PRN PRN Reason: Chest Pain Polyethylene Glycol (Polyethylene Glycol 3350 17 Gm Powd.Pack) 17 gm PO QAM PRN PRN Reason: Constipation Spironolactone (Spironolactone 12.5 Mg Tablet) 12.5 mg PO QAM [facility] Transfer Discharge Sum: Hosp Hospital Course Hospital course: Titi Godfrey is a 76 year old male The patient has elevated troponins.? Cardiology has been consulted.? The patient was started on aspirin and Brilinta.? The patient was placed on heparin drip.? Sublingual nitro p.r.n. for chest pain.? An echo has been ordered.? As per Cardiology note, plan for angiogram possibly on Monday.? The patient may have a heart healthy diet for now. ?Patient is 76-year-old male presented with a complaint of chest pain on and off for last few days his symptoms worsen and presented to ER with weakness and is found to have a non STEMI patient is seen by Cardiology started the patient on aspirin, Brilinta, statin, and heparin today? patient had cardiac catheterization and it showed severe CAD and railway signalling engineer is recommending CABG and patient needs to be transferred to [facility], waiting for the bed, hopefull transfer today, ? also patient has history of inguinal hernia and C/O pain, was seen by general surgery and suggested once patient cardiac issues have resolved will need surgical evaluation.? Patient had a cardiac catheterization showed patient has severe coronary artery
[2022-09-08] VITALS: PULSE 60
[2022-09-08 02:00] VITALS: PULSE 60
--- NOTE | 2022-09-08 02:47 | PC.NURSE ---
The patient has been notified that he has a bed at [facility] and will transfer as soon as transportation can be provided. Clair the [facility] nurse who will be responsible for Titi if transferred this shift has been given report. The patient has been given the opportunities to ask questions and was helped to prepare his belongings for leaving. The patient's has been notified by the patient. Transferring pending ambulance availability.
[2022-09-08] MEDS: HEPARIN SOD/D5W 100 UNITS/ML 25,000 UNITS/250 ML BAG 14 UNITS IV CONT (04:06)
--- NOTE | 2022-09-08 04:07 | PC.NURSE ---
Patient left with EMS in stable condition. All patient belongings were sent with the patient and receiving service notified.
== END 2022-09-08 04:09 | disposition short-term general hospital (02) | DRG 282 ==
LOC: ANHED 09:52 → ANHIMU 10:47
PROVIDERS: Emergency Medicine; Internal Medicine; Internal Medicine Cardiovascular Disease; Nurse Practitioner; Specialist; Admitting Provider Family Medicine; Emergency Provider Physician Assistant; PCP Internal Medicine; Visit Provider Family Medicine
PROC: 4A023N7 Measurement of Cardiac Sampling and Pressure, Left Heart, Percutaneous Approach (ICD-10-PCS; CPT 93452; principal; 2022-09-05 10:30)
DX: I21.4 Non-ST elevation (NSTEMI) myocardial infarction (principal); I25.10 Atherosclerotic heart disease of native coronary artery without angina pectoris; I25.5 Ischemic cardiomyopathy; I51.3 Intracardiac thrombosis, not elsewhere classified; I49.3 Ventricular premature depolarization; I10 Essential (primary) hypertension; K43.2 Incisional hernia without obstruction or gangrene; E78.00 Pure hypercholesterolemia, unspecified; M54.9 Dorsalgia, unspecified; Z85.46 Personal history of malignant neoplasm of prostate
CPT/HCPCS: 36415; 71046; 80048; 80053; 80061; 81001; 82948; 83605; 83690; 83735; 83880; 84443; 84484; 85025; 85027; 85610; 85730; 93005; 93306; 93308; 93458; 96365; 96366; 99285; A9270; C1887; C1894; C8924; G0378; J0461; J1644; J2250; J3010; J7030; J7040; Q9957

== ENCOUNTER 2022-12-19 08:30 | Outpatient (RCR) | payer MEDICARE, SELFPAY | END 2023-01-16 09:21 | disposition home or self-care (01) | LOC: ANHCPREHAB 08:30 | PROVIDERS: PCP Internal Medicine; Visit Provider Internal Medicine | DX: Z95.1 Presence of aortocoronary bypass graft (principal) | CPT/HCPCS: 93798 ==